=== PATIENT | female | born 1985 | race Caucasian/White ===

== ENCOUNTER 2018-01-13 19:20 | Emergency (ER) | payer BC, SELFPAY ==
[2018-01-13 19:24] VITALS: BP 100/58; PULSE 73; RESP 16; TEMP 36.4; O2SAT 98
[2018-01-13] MEDS: Normal Saline 1,000 ML 1000 ML IV (19:52)
[2018-01-13] MEDS: Ondansetron 4 MG/2 ML VIAL IVP (19:53)
[2018-01-13] MEDS: diphenhydrAMINE 50 MG/ML VIAL IVP (19:54)
[2018-01-13] MEDS: Dexamethasone 10 MG/ML VIAL IVP (19:59)
[2018-01-13] MEDS: Prochlorperazine 10 MG/2 ML VIAL IVP (20:00)
[2018-01-13 20:47] VITALS: BP 94/52; PULSE 57; RESP 16; TEMP 37.2; O2SAT 97
--- NOTE | 2018-01-13 20:57 | ED.GENADUL ---
Disposition Clinical Impression: Migraine headache Disposition: HOME Condition: Stable Instructions: Migraine Headache (ED) Additional Instructions: Return immediately if you have any severe worsening of your headache, change in your headache or headache pattern, fever associated with headache, or neurological deficits. Otherwise follow-up with your primary care provider if your normal migraine abortive medication is no longer sufficient or if you get more frequency of headaches and need reassessment. Referrals: RUI BLACK [Primary Care Provider] - (Return to the emergency department as needed for emergent reassessment or for any worsening symptoms otherwise follow-up with your primary care provider as needed for any potential medication changes or recheck of your migraines.) Medical Decision Making - Medical Decision Making Patient presenting to the emergency department chief complaint of migraine headache. Patient states no change in migraine pattern or symptoms. Patient took her normal abortive medication without relief. Physical exam is unremarkable for any severe neurological changes or findings except for marked photo and phonophobia and subjective nausea. Review of patient's past medical records show recurrent migraine headaches with similar presentation and resolution after receiving Compazine, Zofran, Benadryl, Decadron and IV fluids. These were all ordered and patient was agreeable to receiving these medications. Patient was reassessed after completion of fluids and received medication. She did state that her headache was now a 5 out of 10 but still had persistent nausea. Patient was then ordered Phenergan to see if this would help resolve her symptoms. After receiving Phenergan patient was reassessed and states headache approximately 3 out of 10 and that she felt significantly better and wanting to be discharged home. Given the patient is otherwise neurologically intact with no concerning symptoms and typical migraine pattern I feel that she is able to be safely discharged. Patient was encouraged to return for any new or worsening symptoms otherwise follow-up with her primary care provider for reassessment or medication changes if her normal abortive therapy is proving to be continued infected. After discussion of diagnosis and plan of care with patient patient agreed and stated no further needs, questions, or concerns at this time. History of Present Illness - General Chief complaint: Headache Stated complaint: MIGRAINE,VOMITING Time Seen by Provider: 01/13/18 19:22 Source: patient, RN notes reviewed Mode of arrival: ambulatory Limitations: no limitations - History of Present Illness Initial comments: Patient presenting to the emergency department with complaint of significant migraine headache. She states that this is her typical migraine headache without any change in pattern or severity but that her normal medications are not working. She states that she took Aleve and sumatriptan right after it started but had no improvement and is now having nausea vomiting photo and phonophobia. Patient denies any injury or trauma, fever, or neurological deficits. Onset/Timin -: hour(s) Location: head Severity scale (1-10): 7 Quality: aching, other (pressure) Consistency: constant Improves with: none Worsens with: none Associated Symptoms: denies other symptoms Treatments Prior to Arrival: other (Imitrex, Aleve) - Related Data Diazepam [Valium] 5 mg PO PRN PRN 10/05/12 Duloxetine HCl [Cymbalta] 60 mg PO HS 10/05/12 SUMAtriptan [Imitrex] 5 mg NS DIRECTED 10/05/12 Naproxen Sodium [Aleve] 440 mg PO PRN PRN 06/08/14 Ondansetron ODT [Zofran Odt] 4 mg PO QID PRN #10 tabef 04/12/17 Promethazine [Phenergan] 25 mg PO PRN 01/13/18 Allergies Allergy/AdvReac Type Severity Reaction Status Date / Time codeine [Codeine] AdvReac n/v Unverified 04/12/17 21:01 ketorolac AdvReac n/v Unverified 04/12/17 21:01 ketorolac tromethamine AdvReac Nausea Unverified 04/12/17 21:01 [From Toradol] meperidine HCl [From Demerol] AdvReac n/v Unverified 04/12/17 21:01 oxycodone [Oxycodone] AdvReac n/v Unverified 04/12/17 21:01 oxycodone HCl AdvReac n/v Unverified 04/12/17 21:01 [From OxyContin] Narcotics AdvReac Uncoded 04/12/17 21:01 Review of Systems Constitutional: denies: fever, malaise Eyes: as per HPI. denies: vision change ENT: as per HPI. denies: ear pain Respiratory: denies: cough Cardiovascular: denies: syncope Neurological: as per HPI, headache. denies: weakness, numbness, paresthesias, confusion, vertigo Past Medical History - Past Medical History Migraine headaches, fibromyalgia Surgical history: other (surgery and right ankle surgery) LMP comments: week(s) (3 weeks ago). denies: - Social History Smoking status: never smoker Alcohol use: occasionally Drug use: none General Exam - General Limitations: no limitations General appearance: alert, other (In obvious discomfort) - Head Head exam: Present: atraumatic, normocephalic, normal inspection - Eye Eye exam: Present: normal apperance, PERRL, EOMI, other (Obvious photophobia). Absent: scleral icterus, conjunctival injection, nystagmus Pupils: Present: normal accommodation, other - ENT ENT exam: Present: normal orophraynx, mucous membranes moist - Neck Neck exam: Present: normal inspection, full ROM. Absent: tenderness, meningismus - Respiratory Respiratory exam: Present: normal lung sounds bilaterally. Absent: respiratory distress, wheezes, rales, rhonchi, stridor, decreased breath sounds - Cardiovascular Cardiovascular Exam: Present: regular rate, normal rhythm, normal heart sounds. Absent: tachycardia, systolic murmur, diastolic murmur, rubs, gallop, clicks - Neurological Exam Neurological exam: Present: alert, oriented X3, CN II-XII intact, normal gait. Absent: altered, motor sensory deficit - Skin Skin exam: Present: warm, dry, normal color. Absent: rash, cyanosis, diaphoretic, pallor, mottled Course Vital Signs - 24 hr 01/13/18 01/13/18 19:24 20:47 Temperature 36.4 C L 37.2 C Pulse 73 57 L Respiratory 16 16 Rate Blood Pressure 100/58 94/52 Pulse Oximetry 98 97
[2018-01-13 21:33] VITALS: BP 100/58; PULSE 58; RESP 16; O2SAT 97
== END 2018-01-13 21:28 | disposition home or self-care (01) ==
PROVIDERS: Emergency Provider Student in an Organized Health Care Education/Training Program; PCP Family Medicine
DX: G43.909 Migraine, unspecified, not intractable, without status migrainosus (principal)
CPT/HCPCS: 96374; 96375; 99284; 99283; J0780; J1100; J1200; J2405

== ENCOUNTER 2019-03-09 10:26 | Outpatient (CLI) | payer OTHER, SELFPAY ==
--- NOTE | 2019-03-09 10:30 | DI.RAD_ITS ---
EXAM: XR ANKLE RT COMPLETE INDICATION: PAIN AND SWELLING. COMPARISON: No exams were available for comparison TECHNIQUE: 2D digital imaging was performed. FINDINGS: Three views were obtained. The ankle mortise is well maintained. No bony abnormality seen. IMPRESSION:
== END 2019-03-09 10:46 ==
PROVIDERS: PCP Family Medicine; Visit Provider Psychiatry & Neurology Neurology
DX: M25.571 Pain in right ankle and joints of right foot (principal); M79.89 Other specified soft tissue disorders
CPT/HCPCS: 73610

== ENCOUNTER 2019-03-24 02:16 | Outpatient (CLI) | payer OTHER, SELFPAY ==
--- NOTE | 2019-03-24 10:14 | DI.MRI_ITS ---
EXAM: MR LOWER JOINT RT WO CLINICAL HISTORY: PAIN, INSTABILITY M25.371 M95.8 DEFORMITIES OF MUSCULOSKELETAL SYSTEM. TECHNIQUE: Multiplanar multisequence MRI was performed. COMPARISON: XR ANKLE RT COMPLETE from 03/09/2019 FINDINGS: The marrow signal is normal. No talar dome defect is seen. No tendon tear is seen. There is a no rmal quantity of joint fluid. IMPRESSION: Negative MRI of the right ankle.
== END 2019-03-24 02:36 ==
PROVIDERS: PCP Family Medicine; Visit Provider Student in an Organized Health Care Education/Training Program
DX: M25.571 Pain in right ankle and joints of right foot (principal); M25.371 Other instability, right ankle; M95.8 Other specified acquired deformities of musculoskeletal system
CPT/HCPCS: 73721

== ENCOUNTER 2020-03-28 07:49 | Outpatient (REF) | payer OTHER, SELFPAY ==
[2020-03-31 00:05] LABS: Patient Race White; SARS-CoV-2 RNA Undetected (Undetected); SARS-CoV-2 Specimen Source Nasal
== END 2020-03-28 08:09 ==
LOC: LBO 07:49
PROVIDERS: PCP Family Medicine; Visit Provider Nurse Practitioner Family
DX: Z11.59 Encounter for screening for other viral diseases (principal)
CPT/HCPCS: U0003

== ENCOUNTER 2020-05-24 02:29 | Outpatient (CLI) | payer OTHER, SELFPAY ==
[2020-05-27 21:30] LABS: COVID-19 RT-PCR Result NEGATIVE (Negative)
== END 2020-05-24 02:49 ==
PROVIDERS: PCP Family Medicine; Visit Provider Nurse Practitioner Family
DX: Z11.59 Encounter for screening for other viral diseases (principal)
CPT/HCPCS: U0003

== ENCOUNTER 2020-10-05 15:04 | Outpatient (REF) | payer OTHER, SELFPAY | END 2020-10-05 15:05 | disposition home or self-care (01) | LOC: LBN 15:04 | PROVIDERS: PCP Nurse Practitioner Family; Visit Provider Nurse Practitioner Family | DX: J02.9 Acute pharyngitis, unspecified (principal) | CPT/HCPCS: 87070 ==

== ENCOUNTER 2020-10-25 08:48 | Outpatient (CLI) | payer OTHER, SELFPAY ==
[2020-10-25 13:02] LABS: Anion Gap 8.4 mmol/L (3-11); BUN 13 mg/dL (7-18); CO2 27.6 mmol/L (21.0-32.0); CREATININE 0.7 mg/dL (0.55-1.02); Calcium 9.3 mg/dL (8.5-10.1); Calculated LDL 97 mg/dL (<100); Chloride 105 mmol/L (98-107); Cholesterol 205 mg/dL (<200); Glucose 95 mg/dL (74-106); HDL Cholesterol 98 mg/dL (40-60); Potassium 4.5 mmol/L (3.5-5.1); Sodium 141 mmol/L (136-145); Triglyceride 51 mg/dL (<150)
== END 2020-10-25 08:49 | disposition home or self-care (01) ==
PROVIDERS: PCP Nurse Practitioner Family; Referring Provider Nurse Practitioner Family; Visit Provider Nurse Practitioner Family
DX: Z00.00 Encounter for general adult medical examination without abnormal findings (principal); Z13.228 Encounter for screening for other metabolic disorders; Z13.220 Encounter for screening for lipoid disorders
CPT/HCPCS: 36415; 80048; 80061

== ENCOUNTER 2020-11-07 14:57 | Outpatient (CLI) | payer OTHER, SELFPAY ==
--- NOTE | 2020-11-07 | DI.RAD_ITS ---
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 TECHNIQUE: 2D digital imaging was performed. COMPARISON: CR XR ANKLE RT COMPLETE from 03/09/2019 FINDINGS: BONES: No acute fracture is present. No bony destructive lesion is seen. There is a question of a we ll corticated osseous density at the tip of the lateral malleolus which may represent an old avulsed fracture fragment. JOINTS: The ankle mortise is normally aligned. The articular surfaces are well maintained. SOFT TISSUE: Normal. IMPRESSION: No acute abnormality. DATA REPOSITORY: RADIATION DOSE DELIVERED:
== END 2020-11-07 15:17 ==
PROVIDERS: PCP Nurse Practitioner Family; Visit Provider Orthopaedic Surgery Foot and Ankle Surgery
DX: M19.171 Post-traumatic osteoarthritis, right ankle and foot (principal); M25.571 Pain in right ankle and joints of right foot
CPT/HCPCS: 73610

== ENCOUNTER 2020-11-22 01:58 | Outpatient (CLI) | payer OTHER, SELFPAY ==
--- NOTE | 2020-11-22 06:45 | DI.MRI_ITS ---
Exam(s) MR LOWER JOINT RT WO EXAM: MR LOWER JOINT RT WO CLINICAL HISTORY: chronic right ankle instability, prior surgeries,M25.371 TECHNIQUE: Multiplanar multisequence MRI was performed without intravenous contrast. COMPARISON: MR MR LOWER JOINT RT WO from 03/24/2019 CR XR ANKLE RT COMPLETE from 11/07/2020 FINDINGS: BONES/JOINTS: No fracture or contusion pattern. No bone lesions identified. The talar dome is smooth. The ankle mortise is maintained. No joint effusion is present. LIGAMENTS: The tibiofibular and calcaneofibular ligaments are intact. The talofibular ligaments are i ntact. The deltoid ligament is intact. The syndesmosis is unremarkable. Sinus tarsi is normal. MUSCULOTENDINOUS STRUCTURES: Achilles tendon: Unremarkable. Plantar fascia: Unremarkable. Anterior Extensor tendons: Unremarkable. Posterior Tibialis: Unremarkable. Flexor Digitorum longus: Unremarkable. Flexor Hallucis longus: Unremarkable. Peroneus longus: Unremarkable. Peroneus brevis:Unremarkable. SOFT TISSUES: Unremarkable. OTHER FINDINGS: None. IMPRESSION: No acute abnormality. No evidence of a ligament or tendon tear. DATA REPOSITORY:
== END 2020-11-22 02:18 ==
PROVIDERS: PCP Nurse Practitioner Family; Visit Provider Nurse Practitioner Family
DX: M25.371 Other instability, right ankle; Z98.890 Other specified postprocedural states
CPT/HCPCS: 73721

== ENCOUNTER 2021-05-21 20:15 | Emergency (ER) | payer OTHER, SELFPAY ==
[2021-05-21 20:18] VITALS: BP 116/66; PULSE 91; RESP 18; TEMP 36.4; O2SAT 100
[2021-05-21] MEDS: diphenhydrAMINE 50 MG/ML VIAL 25 MG IVP (20:44)
[2021-05-21] MEDS: Prochlorperazine 10 MG/2 ML VIAL IVP (20:44)
[2021-05-21] MEDS: Normal Saline 1,000 ML 1000 ML IV (20:44)
[2021-05-21] MEDS: Dexamethasone 10 MG/ML VIAL IVP (21:22)
--- NOTE | 2021-05-21 21:54 | ED.GENADUL_ITS ---
Discharge Plan Disposition Patient Disposition: HOME Condition: Improving Discharge Details Clinical Impression: Migraine headache Primary Care Provider: Zayda Eubanks ED Provider: Shiela Clements Home Meds and New Rx's Prescriptions: Continued magnesium oxide 400 mg magnesium tablet 400 mg PO DAILY RF: 0 vitamin B complex Tablet 1 tab PO DAILY RF: 0 turmeric root extract 500 mg capsule 500 mg PO DAILY RF: 0 promethazine 25 mg tablet 25 mg PO Q8H PRN (Reason: nausea and vomiting) Qty: 60 RF: 1 sahyngchtc-awvbxukrwqyef-tfqs [Fioricet] 50-300-40 mg capsule 1 cap PO Q8H PRN (Reason: pain) Qty: 3 RF: 0 amoxicillin-pot clavulanate [Augmentin] 875-125 mg tablet 1 tab PO Q12H Qty: 14 RF: 0 sumatriptan succinate 100 mg tablet 100 mg PO ONCE RF: 0 celecoxib [Celebrex] 100 mg capsule 100 mg PO BID PRN (Reason: pain) Qty: 60 RF: 0 sumatriptan [Imitrex] 5 MG spray,non-aerosol 5 mg NS DIRECTED RF: 0 naproxen sodium [Aleve] 220 MG capsule 440 mg PO PRN PRNRF: 0 Discharge Instructions Instructions: General Headache (ED) Referrals: Zayda Eubanks NP [Primary Care Provider] - Discharge Data Discharge Date/Time-TO BE ENTERED AT DEPARTURE: 05/21/21 22:13 Medical Decision Making <Shiela Clements NP - Last Filed: 05/21/21 22:09> presents with typical migraine, not responding to home medications will given 1 liter NS with compazine 10 mg IV and benadryl 50 mg IVP and decadron 10 mg IVP with improvement in symptoms. feels she is able to take PO and requesting discharge to home. Medical Records Medical records reviewed: Yes I reviewed the patient's medical records. <Titi Sharif MD - Last Filed: 05/24/21 08:42> I did not evaluate this patient. Patient was seen, treated and disposition independently by nurse practitioner Tyree. HPI <Shiela Clements NP - Last Filed: 05/21/21 22:09> General Mode of arrival: ambulatory . Date/Time Provider Initiated Documentation: 05/21/21 20:23 . Limitations to Documentation: no limitations . Information obtained by: patient . HPI Narrative: arrives with c/o migraine, same as chronic typical migraine. tried imitrex yesterday and today. no fevers, no new symptoms, no thunderclap or other warning. Related Data Home Medications Medication Instructions Recorded Confirmed sumatriptan [Imitrex] 5 mg NS DIRECTED 10/05/12 04/02/21 naproxen sodium [Aleve] 440 mg PO PRN PRN 06/08/14 04/02/21 sumatriptan succinate 100 mg tablet 100 mg PO ONCE 09/18/20 04/02/21 magnesium oxide 400 mg PO DAILY 10/24/20 04/02/21 turmeric root extract 500 mg 500 mg PO DAILY 10/24/20 04/02/21 capsule vitamin B complex 1 tab PO DAILY 10/24/20 04/02/21 promethazine 25 mg tablet 25 mg PO Q8H PRN #60 tab 10/25/20 04/02/21 celecoxib 100 mg capsule 100 mg PO BID PRN #60 cap 12/05/20 04/02/21 amoxicillin 875 mg-potassium 1 tab PO Q12H #14 tab 04/02/21 04/02/21 clavulanate 125 mg tablet sgikshpkzn-bxhklqtlzcrgc-arjlggpb 1 cap PO Q8H PRN #3 cap 04/02/21 04/02/21 50 mg-300 mg-40 mg capsule Previous Rx's Medication Instructions Recorded promethazine 25 mg tablet 25 mg PO Q8H PRN #60 tab 10/25/20 celecoxib 100 mg capsule 100 mg PO BID PRN #60 cap 12/05/20 amoxicillin 875 mg-potassium 1 tab PO Q12H #14 tab 04/02/21 clavulanate 125 mg tablet klkvkyscaz-wdtqooqkaitwg-eppsswox 1 cap PO Q8H PRN #3 cap 04/02/21 50 mg-300 mg-40 mg capsule Allergies Allergy/AdvReac Type Severity Reaction Status Date / Time codeine [Codeine] AdvReac n/v Verified 04/02/21 13:30 ketorolac AdvReac n/v Verified 04/02/21 13:30 ketorolac tromethamine AdvReac Nausea Verified 04/02/21 13:30 [From Toradol] meperidine HCl [From Demerol] AdvReac n/v Verified 04/02/21 13:30 oxycodone [Oxycodone] AdvReac n/v Verified 04/02/21 13:30 oxycodone HCl AdvReac n/v Verified 04/02/21 13:30 [From OxyContin] Narcotics AdvReac Uncoded 04/02/21 13:30 General Stated Complaint: Headache MIKHAIL: 4 Review of Systems <Shiela Clements NP - Last Filed: 05/21/21 22:09> All systems reviewed & are unremarkable except as noted in HPI and below Constitutional Constitutional: Denies fever(s) Eyes Eyes: Denies loss of vision ENT Ears, Nose, Mouth, and Throat: Denies vertigo, Denies dizziness and Denies neck pain Cardiovascular Cardiovascular: Denies lightheadedness Gastrointestinal Gastrointestinal: Denies abdominal pain, Denies constipation, Denies diarrhea, Reports nausea and Reports vomiting Musculoskeletal Musculoskeletal: Denies neck pain Neurologic Neurologic: Denies vertigo, Denies dizziness, Denies loss of vision and Reports other (headache) PFSH <Shiela Clements NP - Last Filed: 05/21/21 22:09> All Active Problems (Updated 05/21/21 @ 22:09 by Shiela Clements NP) Right ankle instability (Chronic) Fibromyalgia (Chronic) Migraine headache (Chronic) Medical History Fibromyalgia Migraine headache Right ankle instability Surgical History History of ankle surgery Right avulsion repair S/P arthroscopy of left shoulder (~2007) x 2 at [facility] and [facility] S/P right rotator cuff repair (~2014) Dr. Butterfield Family History Mother Stroke 40s Father No problems noted. Brother No problems noted. Maternal Grandfather Heart disease Alcohol abuse Maternal Grandmother , at 78 No problems noted. Paternal Grandfather No problems noted. Paternal Grandmother No problems noted. Social History Smoking/Tobacco Use Status: Never Smoking risk assessment performed?: Yes Alcohol Intake: current Alcohol Intake frequency: a few times a week Alcohol type: other Drug use: Never Substance use type: does not use Housing: apartment Communication Needs: None Pets and animals: Yes Pets and animals: dog(s) Sexually active: No Do you think of yourself as: lesbian/vargas/homosexual Current gender identity: female What is your relationship status?: never How often do you talk on the phone with friends or family?: once per week Do you belong to any clubs or organized social groups?: no Panel score (0-1 are the most socially isolated patients): 0 What type of physical activity do you participate in: walking and bicycling Frequency: 1-2 times per week Guerda/Synagogue: No preference Special guerda needs: No Seatbelt use: always Drive intox or ride w/intox local company hazmat driver: No Do you feel safe in your relationship?: Yes Exam <Shiela Clements NP - Last Filed: 05/21/21 22:09> Const General: cooperative and acute distress moderate Nutritional Appearance: average body habitus Orientation: alert, awake and oriented x3 HENMT Head: normal to inspection, normocephalic and atraumatic Eyes General: appearance normal, both eyes and all related structures Cardio Rate: regular rate Rhythm: regular rhythm Skin General skin exam: no rashes or lesions noted Neuro General: patient alert, patient awake, patient oriented x3 and no focal motor deficits Extrem General: normal to inspection, full ROM and no pedal edema Course <Shiela Clements NP - Last Filed: 05/21/21 22:09> Vital Signs Vital signs: Vital Signs Temperature 36.4 C L 05/21/21 20:18 Pulse 91 H 05/21/21 20:18 Respiratory Rate 18 05/21/21 20:18 Blood Pressure 116/66 05/21/21 20:18 Pulse Oximetry 100 05/21/21 20:18 Temperature 36.4 C L 05/21/21 20:18 Temperature Source Tympanic 05/21/21 20:18 Pulse 91 H 05/21/21 20:18 Respiratory Rate 18 05/21/21 20:18 Respiratory Effort 05/21/21 20:21 Blood Pressure 116/66 05/21/21 20:18 Blood Pressure Position Supine 05/21/21 20:18 Pulse Oximetry 100 05/21/21 20:18 Oxygen Delivery Method Room Air 05/21/21 20:18 Oxygen Flow Rate 0 05/21/21 20:18 Pain Level 9 05/21/21 20:18
== END 2021-05-21 22:13 | disposition home or self-care (01) ==
PROVIDERS: Emergency Provider Nurse Practitioner Acute Care; PCP Nurse Practitioner Family
DX: G43.909 Migraine, unspecified, not intractable, without status migrainosus (principal)
CPT/HCPCS: 96361; 96374; 96375; 99284; 99283; J0780; J1100; J1200

== ENCOUNTER → 2021-11-25 00:28 | Outpatient (CLI) | payer OTHER, SELFPAY ==
--- NOTE | 2021-11-25 | DI.MRI_ITS ---
Exam(s) MR PELVIS WO/W EXAM: MR PELVIS WO/W CLINICAL HISTORY: PELVIC MASS, R19.00, PELVIC US ABNORMALITY TECHNIQUE: Multiplanar multisequence MRI of Pelvis was performed. CONTRAST MATERIAL: IV Contrast: 12 mL of Dotarem contrast administered. COMPARISON: US US PELVIS TRANSVAGINAL from 11/21/2021 FINDINGS: Uterus: Anteverted 8.5 cm in length, 6 cm 8 AP by 6 x 7.5 cm transverse. Endometrium homogeneous. 7 millimeter submucosal fibroid. Multiple small low signal lesions consistent with small myometrial f ibroids. Right anterior circumscribed mainly low signal lesion measuring 8.8 by 5.7 by 5.4 cm. Sign al characteristics and enhancement consistent with a large serosal Fibroid. additional large serosal fibroid measuring 12 x 12 x 7.5 cm. Similar appearing posterior pedunculated fibroid measuring 8.3 by 6 by 5.9 cm. Cervix: Unremarkable. Vagina: Tampon in place. Ovaries: Normal in size with normal small bilateral follicles. Bowel: Unremarkable. Peritoneal cavity: Small amount of free fluid. Bladder: Unremarkable. Bones: There is no fracture or contusion pattern. No significant joint effusion. No bone marrow cindi ma is seen. The SI joints and symphysis pubis are well maintained. L3-4 through L5-S1 discs unremarka ble. IMPRESSION: Findings consistent with 3 large pedunculated fibroids. Other small myometrial fibroids as well as s ubmucosal fibroid is seen. Given the large size of the fibroids, malignancy is not entirely excluded . Surgical consultation is recommended. The ovaries appear normal. DATA REPOSITORY:
[2021-11-25] MEDS: Normal Saline Flush 10 ML SYR IVP (08:37)
== END ==
PROVIDERS: PCP Nurse Practitioner Family; Visit Provider Physician Assistant Medical
DX: R19.09 Other intra-abdominal and pelvic swelling, mass and lump (principal); D25.0 Submucous leiomyoma of uterus; D25.2 Subserosal leiomyoma of uterus
CPT/HCPCS: 72197

== ENCOUNTER 2021-12-02 14:04 | Outpatient (REF) | payer OTHER, SELFPAY ==
--- NOTE | 2021-12-02 13:35 | PAPFT_PTH ---
PATIENT: Lissa Waller LOC: [facility] U#:[id number] AGE/SX: 36/F ROOM: RE12/02/[address]: Tiffany Sheridan DO : 1985 BED: DIS: 12/02/2021 SPEC #: [id number] RECD: 12/02/21 18:28 STATUS: KAM REQ #: [id number] LEWIS: 12/02/21 13:[address]: Tiffany Sheridan DEPT: [facility] Cytology RECD BY: Mel Farah ENTERED: 12/02/21 18:29 SP TYPE: PAPFT OTHR DR: Zayda Eubanks, FABRICATION MACHINE OPERATOR Tissues: 1 - CX/ENDOCX FOR PAP SMEARS Procedures: PAP THIN PREP/UVM Screening HPV DNA PROBE Comments: [id number]
== END 2021-12-02 14:05 | disposition home or self-care (01) ==
LOC: LBN 14:04
PROVIDERS: PCP Nurse Practitioner Family; Visit Provider Obstetrics & Gynecology
DX: Z11.51 Encounter for screening for human papillomavirus (HPV) (principal)
CPT/HCPCS: 88142; 87624

== ENCOUNTER 2022-02-02 04:04 | Outpatient (CLI) | payer OTHER, SELFPAY ==
[2022-02-02 12:11] LABS: Abs Immature Grans 0.01 10^3/uL (0.0-0.06); Absolute Basophil Count 0.05 10^3/uL (0.0-0.2); Absolute Eosinophil Count 0.11 10^3/uL (0.0-0.7); Absolute Lymphocyte Count 1.57 10^3/uL (1.2-3.4); Absolute Monocyte Count 0.56 10^3/uL (0.1-0.8); Absolute Neutrophil Count 2.32 10^3/uL (1.2-6.7); Basophils % 1.1; Eosinophils % 2.4; HCT 39.6 % (36.0-46.0); HGB 13.4 g/dL (11.2-15.7); Immature Grans % 0.2; MCH 30.1 pg (27.0-33.0); MCHC 33.8 % (32.0-36.0); MCV 89 fL (80-95); Monocytes % 12.1; Neutrophils % 50.2; Platelet Count 354 10^3/uL (130-400); RBC 4.45 10^6/uL (3.93-5.22); RDW 12.2 % (11.7-14.6); RDW-SD 39.7 fL; WBC 4.62 10^3/uL (4.4-10.8)
[2022-02-04 11:12] LABS: COVID-19 RT-PCR UVMMC Result Negative (Negative)
== END 2022-02-02 04:05 | disposition home or self-care (01) ==
LOC: LBO 04:04
PROVIDERS: PCP Nurse Practitioner Family; Visit Provider Obstetrics & Gynecology
DX: Z01.818 Encounter for other preprocedural examination (principal); Z20.822 Contact with and (suspected) exposure to COVID-19
CPT/HCPCS: 36415; 86850; 86900; 86901; 87635; U0003; 85025

== ENCOUNTER 2022-02-04 07:22 | Inpatient (IN) | payer OTHER, SELFPAY ==
[2022-02-04] VITALS (23 sets, daily range): BP systolic 82–107; BP diastolic 41–66; PULSE 47–91; RESP 12–23; TEMP 35.5–37.6; O2SAT 97–100; BMI 22.0
[2022-02-04 07:37] LABS: Source Nasal/Nares
[2022-02-04] MEDS: Lactated Ringers 1,000 ML 125 ML IV ×3 (08:13→21:12)
[2022-02-04 08:41] LABS: COVID-19 PCR Negative (Negative)
--- NOTE | 2022-02-04 09:21 | ANES.PREOP_ITS ---
General Info Date of Service Date Performed: 02/04/22 Height: 5 ft 4 in Weight: 58.2 kg Body Mass Index (BMI): 22.0 Surgical Procedure: Operation Date: 02/04/22 09:25 Proposed Procedure Side Surgeon p Total Hysterectomy Abdominal,Bilateral Salpingectomy, Cystoscopy Tiffany Sheridan DO Meds Allergies and Home Medications Allergies Allergy/AdvReac Type Severity Reaction Status Date / Time codeine [Codeine] AdvReac n/v Verified 02/04/22 07:53 ketorolac AdvReac n/v Verified 02/04/22 07:53 ketorolac tromethamine AdvReac Nausea Verified 02/04/22 07:53 [From Toradol] meperidine HCl [From Demerol] AdvReac n/v Verified 02/04/22 07:53 oxycodone [Oxycodone] AdvReac n/v Verified 02/04/22 07:53 oxycodone HCl AdvReac n/v Verified 02/04/22 07:53 [From OxyContin] Narcotics AdvReac Uncoded 02/04/22 07:53 Home Medication Medication Instructions Recorded naproxen sodium 220 mg capsule 440 mg PO PRN PRN 06/08/14 (Aleve) magnesium oxide 400 mg PO DAILY 10/24/20 turmeric root extract 500 mg 500 mg PO DAILY 10/24/20 capsule vitamin B complex 1 tab PO DAILY 10/24/20 promethazine 25 mg tablet 25 mg PO Q8H PRN nausea and 10/25/20 vomiting #60 tabs celecoxib 100 mg capsule (Celebrex) 100 mg PO BID PRN pain #60 caps 08/07/21 bupropion HCl 150 mg 24 hr tablet, 150 mg PO DAILY #90 tabs 11/25/21 extended release (Wellbutrin XL) lorazepam 2 mg tablet 2 mg PO DAILY PRN 02/02/22 ondansetron 4 mg disintegrating 4 mg PO DIRECTED 02/03/22 tablet zolmitriptan 5 mg nasal spray 1 spray intranasal DIRECTED 02/03/22 Current Visit Medications: Current Medications Generic Name Dose Route Start Last Admin Trade Name Freq PRN Reason Stop Dose Admin Ringer's Solution 1,000 mls @ 125 mls/hr 02/04/22 06:00 02/04/22 08:13 IV 03/05/22 23:59 125 mls/hr INFUSION CHRISTIAN Administration Cefazolin Sodium/Dextrose 2 gm in 50 mls @ 100 mls/hr 02/04/22 06:00 Ancef Duplex IVPB 02/04/22 16:00 PREOP CHRISTIAN IV Miscellaneous Supplies 1 each 02/04/22 06:00 Iv Access IV 03/05/22 23:59 DIRECTED CHRISTIAN Sodium Chloride 0 ml 02/04/22 06:00 Normal Saline Flush 10 Ml Syr IV 03/05/22 23:59 PRN PRN Sodium Chloride 0 ml 02/04/22 06:00 Normal Saline 10 Ml Vial IJ 03/05/22 23:59 DIRECTED PRN Sterile Water 0 ml 02/04/22 06:00 Water,Injection,Sterile 10 Ml Vial IJ 03/05/22 23:59 DIRECTED PRN PFSH Active Problems Active Problems: Problem Status Onset Code Migraine headache G43.909 Fibromyalgia M79.7 Right ankle instability M25.371 Uterine fibroid D25.9 Depression F32.A Uterine fibroid D25.9 Medical History Medical History PONV (postoperative nausea and vomiting) Medical History Comments:: Pt. requesting NO NSAIDS in the first 12-14 hours 02/04/22 Pt reports she can tolerate Vicodine and Dilaudid if given with Promethl azine Surgical History Surgical History History of ankle surgery Right avulsion repair S/P arthroscopy of left shoulder (~2007) x 2 at [facility] S/P right rotator cuff repair (~2014) Dr. Butterfield Tobacco Smoking/Tobacco Use Status: Never Alcohol Alcohol Intake: current Alcohol intake frequency: a few times a week Alcohol type: other Substance Use Substance use: Never Substance use type: does not use Prental History History 0 Para Hx # Term Pregnancies Multiple births Hx # Pregnancies Ectopic pregnancies AB induced Hx Number of Living Children AB spontaneous Vital Signs and Lab Results Vital Signs Most Recent Vital Signs in EMR: Most Recent Vital Signs Temp Pulse Resp BP Pulse Ox 36.7 C 91 H 16 98/63 L 99 02/04/22 07:57 02/04/22 07:57 02/04/22 07:57 02/04/22 07:57 02/04/22 07:57 Point of Care Results Point of Care Results: POC- Test(urine) Negative 02/04/22 08:03 Lab Results Blood Type / Crossmatch: Patient ABO/Rh B Positive 02/02/22 Antibody Screen NEGATIVE 02/02/22 Complete Blood Count: White Blood Count 4.62 10^3/uL (4.4-10.8) 02/02/22 12:06 Red Blood Count 4.45 10^6/uL (3.93-5.22) 02/02/22 12:06 Hemoglobin 13.4 g/dL (11.2-15.7) 02/02/22 12:06 Hematocrit 39.6 % (36.0-46.0) 02/02/22 12:06 Platelet Count 354 10^3/uL (130-400) 02/02/22 12:06 Complete Metabolic Panel: No Data to Display Liver Function Panel: No Data to Display Coagulation Panel: No Data to Display Cardiac Panel: No Data to Display Arterial Blood Gas: No Data to Display Venous Blood Gas: No Data to Display Pancreas Panel: No Data to Display Thyroid Panel: No Data to Display Infectious Disease: Coronavirus (COVID-19)(PCR) Negative (Negative) 02/04/22 07:32 Coronavirus 2019 Source Nasal/Nares 02/04/22 07:32 Blood Cultures: No Data to Display Toxicology Panel: No Data to Display Panel: No Data to Display Anesthesia Assessment and Plan Anesthesia History Personal History: No History of Anesthesia Complications and PONV Family History: No Family History of Anesthesia Complications Exercise Tolerance Exercise Tolerance: Metabolic Equivalents>4 Pertinent Negatives Pertinent Negatives: No Symptoms of GERD, No Major Cardiovascular Symptoms or Complaints and No Major Pulmonary Symptoms or Complaints Cardiac & Pulmonary Exam Cardiac Exam: Normal S1/S2 Heart Sounds Pulmonary Exam: Clear Bilateral Breath Sounds Implantable Cardiac Device Does patient have a Pacemaker or an ICD?: No Airway Exam Known Difficult Airway: No Mallampati Class: 1 Mouth Opening: Normal (> 3cm) Thyromental Distance: Greater than 3 cm Neck Range of Motion: Full ROM Neck Circumference: Normal Teeth Condition: Normal Dentition ASA Classification ASA Score: ASA 2 Emergency Case?: No NPO Status NPO Status: NPO Clears >2 hours, Solids >8 hours Status Status: Negative HCG Anesthesia Plan Resuscitation Status: Full Code Anesthesia Technique: General Anesthesia Airway Planned: Endotracheal Tube Monitors Used: Standard Monitors Preoperative Comments:: Intrathecal Narcotics
[2022-02-04] MEDS: ceFAZolin 2 GM/50 ML BAG IVPB (10:45)
[2022-02-04] MEDS: Bupivacaine 0.25% Pres-Free 30 ML VIAL (11:07)
--- NOTE | 2022-02-04 11:09 | UTER_PTH ---
PATIENT: Lissa Waller LOC: U#:[id number] AGE/SX: 36/F ROOM: RE02/04/[address]: Tiffany Sheridan DO : 1985 BED: A DIS: 02/06/2022 SPEC #: [id number] RECD: 02/04/22 13:06 STATUS: KAM REQ #: [id number] LEWIS: 02/04/22 11:[address]: Tiffany Sheridan DEPT: Surgical Specimen RECD BY: Mel Farah ENTERED: 02/04/22 13:07 SP TYPE: UTER OTHR DR: RICHARD Deleon Tissues: 1 - UTERUS W OR W/O OVARIES(NOT TUMOR/PROLAPSE) Procedures: GROSS AND MICRO LEVEL 5 Comments: [id number]
[2022-02-04] MEDS: Lidocaine 2% Jelly 6 ML SYR (12:17)
--- NOTE | 2022-02-04 12:35 | ROE_ITS ---
Date of service: 02/04/22 Time of Service: 12:35 Operative Note Operative Note DATE OF PROCEDURE: 02/04/22 PRE-OP DIAGNOSIS: Markedly enlarged fibroid uterus with multiple fibroids, largest being 12 cm POST-OP DIAGNOSIS: same PROCEDURE: Total abdominal hysterectomy with bilateral salpingectomy, and cystoscopy SURGEON: Tiffany Sheridan ASSISTING SURGEON: Yvette Lopez ANESTHESIA TYPE: Local By Surgeon and General LMA/ETT Refer to Anesthesia Record ESTIMATED BLOOD LOSS: 200 PATHOLOGY: other (Uterus, cervix, bilateral fallopian tubes) COMPLICATIONS: None Patient was transported to: PACU Patient's condition: stable Indications: Markedly enlarged bulky fibroid uterus, symptomatic Findings: Uterus approximately 5 cm in greatest dimension with 4 large uterine fibroids the largest measuring approximately 12 cm. These are pedunculated from the uterine fundus, mid body, and lower segment. Normal-appearing ovaries. Normal- appearing fallopian tubes. Stage I endometriosis at the right round ligament. Normal bladder cystoscopy with no evidence of trauma and patent ureteric orifice ease bilaterally Procedure Description: After full informed consent was obtained, patient taken the operating suite with IV running where she is placed in the seated position and intrathecal performed for postoperative pain management. She was then placed in dorsal supine position and endotracheal intubation performed for the administration of general anesthesia with ease. She was then prepped and draped in usual sterile fashion including vaginal preparation, Candelaria catheter insertion and placed in dorsal supine position. Exam under anesthesia revealed a uterus that was approximately 4 cm above the umbilicus, and mobile. At this point, after infiltration with quarter percent Marcaine and Exparel combination Pfannenstiel skin incision was made. This carried down to the underlying fascia which was nicked in the midline and the fascial incision extended laterally. The rectus muscles were identified split in the midline and the peritoneum identified tented up and entered sharply. The peritoneal incision was then extended superiorly and inferiorly and retractors placed. The uterus was noted to be markedly enlarged, globular, with multiple fibroids. These multiple fibroids were elevated through the incision along with the uterus. On further inspection ovaries appeared normal as did the fallopian tubes. The largest of the fibroids was proximately 12 cm with 2 measuring approximately 6 cm and a fourth approximately 3 cm. The uterus itself was relatively small relative to the uterine fibroids. At this point attention was turned to the right fallopian tube which was cautery transected and removed left fallopian tube was also cautery transected and removed. The right round ligament was identified suture-ligated and transected allowing access to the broad ligament. Similar procedure was carried on the left round ligament allowing access to the broad ligament. The bladder flap was then created anteriorly and bladder was pushed low below the cervix. The right uterine pedicle was elevated, clamped, transected, and ligated. Similar procedure was carried out on the left uterine pedicle. In a systematic fashion down to level of stroke at vaginal interface all pedicles were clamped transected and suture-ligated. The cervical vaginal interface was clamped, and transected. The vaginal cuff was then closed using 0 Vicryl suture in a running locked fashion. On inspection the vaginal cuff was noted to be hemostatic. All pedicles were also hemostatic. Deep within the pelvis was visualization of the ureters bilaterally. Despite normal visualization, decision was made also to perform a cystoscopy to ensure integrity of the bladder and patency of the ureters. This is due to significant enlargement of the fibroid uterus and potential for compression and anatomic distortion. Patient was given 1 dose of indigocarmine to assist in visualization of the ureteric orifice ease. While awaiting for indigocarmine to circulate, the abdomen was irrigated with copious amounts of normal saline all retractors were removed and pedicles and again inspected and found to be hemostatic. There was an area at the right rectus muscle that had some bleeding which was oversewn using a 3-0 Vicryl suture and found to be hemostatic. The fascial incision was then closed using 0 Vicryl suture in a running fashion. Subcutaneous Tissue was irrigated with copious amounts of normal saline. Subcu space was reapproximated with 3-0 Vicryl and the skin edge reapproximated with 4-0 undyed Monocryl. Steri-Strips and sterile dressing were placed. At this point cystoscopy was performed after reprepping of the vaginal vault and redraping for cystoscopy. With instillation of normal saline the bladder was inspected and found to be completely atraumatic. The right and left ureteric orifice ease were patent and jets of blue-tinged urine were noted bilaterally. At this point procedure was terminated. Candelaria catheter was reinserted for continuous bladder drainage. Patient was returned to the dorsal supine position and awoke from anesthesia with ease. She was taken recovery room in stable condition with a Candelaria catheter draining clear blue-tinged urine. : Findings globular uterus with multiple uterine fibroids, largest being 12 cm. Normal-appearing tubes and ovaries. Stage I endometriosis with endometriotic implant at the right round ligament, completely resected with surgical specimen. EBL: 200 mL Fluids: Crystalloid per anesthesia Pathology: Uterus, tubes, cervix. Complications: None apparent
--- NOTE | 2022-02-04 13:12 | W.ANESPOSTOP ---
Postoperative Evaluation Date, Time and Location Date Performed: 02/04/22 Time Performed: 13:12 Patient Location: Day Surgery Unit Vital Signs Most Recent Imported Vital Signs: Most Recent Vital Signs Temp Pulse Resp BP Pulse Ox 36.4 C L 54 L 16 91/61 L 100 02/04/22 13:05 02/04/22 13:10 02/04/22 13:10 02/04/22 13:10 02/04/22 13:10 Pain Score Most Recent Pain Score: Most Recent Pain Score Pain Level 0 02/04/22 13:05 Assessment Mental Status: Awake (Alert & Oriented to Patient Baseline) Airway and Respiratory Function: Patent airway with normal (patient baseline) respiratory exam Cardiovascular Function: Hemodynamically Stable Hydration Status: Adequately Hydrated Nausea & Vomiting: No Nausea or Vomiting Pain: Pain is tolerable per patient Peripheral Nerve Block: Regional nerve block not resolved at time of post operative discharge
[2022-02-04] MEDS: ePHEDrine 25 MG/5 ML Syringe IVP ×2 (13:38→13:47)
[2022-02-04] MEDS: Acetaminophen 500 MG TAB 1000 MG PO ×2 (14:15→20:53)
--- NOTE | 2022-02-04 14:25 | NUR.NOTE ---
Nursing Note: Pt A&Ox3. Slightly groggy. Ice pack applied to surgical site. VSS, slightly hypotensive. see worklist. SCD's applied. Candelaria patent, urine blue. Pt oriented to room and call bed system.
[2022-02-04] MEDS: Docusate Sodium 100 MG CAP PO (20:53)
[2022-02-05] MEDS: Acetaminophen 500 MG TAB 1000 MG PO ×3 (03:26→20:54)
[2022-02-05 03:31] VITALS: BP 89/55; PULSE 80; RESP 16; TEMP 36.6; O2SAT 97
[2022-02-05] MEDS: Normal Saline Flush 10 ML SYR IV ×3 (06:07→15:53)
[2022-02-05] MEDS: HYDROmorphone 2 MG TAB PO ×4 (06:07→23:32)
[2022-02-05] MEDS: Ondansetron 4 MG/2 ML VIAL IVP ×4 (06:08→23:32)
[2022-02-05 06:27] VITALS: BP 90/54
--- NOTE | 2022-02-05 08:23 | W.PM.PROGNOT ---
Date of Service Date of service: 02/05/22 Time of Service: 08:23 Assessment and Plan Assessment and plan (1) Status post abdominal hysterectomy: Status: Acute Assessment and plan: Postoperative day #1 status post ALEISHA with salpingectomy. Overall she is doing well. She had declined nonsteroidal pain medication until 12 to 24 hours postoperative. We will add her ibuprofen and Toradol today. Will encourage ambulation. Candelaria catheter is out. She is tolerating regular diet without difficulty. She is passing flatus. My anticipation would be for discharge home either later today or tomorrow once her pain is under better control. All of her questions were answered this morning. Subjective Subjective Patient reports: tolerating liquids well, tolerating a regular diet and flatus; denies nausea, vomiting, shortness of breath or fever Exam Narrative Exam Narrative: Patient seen and examined this morning. Overall doing well. She is somewhat hesitant to be up and ambulatory as she does have significant amount of discomfort. All of her questions were answered today. Vital signs were reviewed are normal. Const General: cooperative, healthy appearing, comfortable and no acute distress Eyes General: appearance normal, both eyes and all related structures Resp Effort & Inspection: normal respiratory effort and no cough Cardio Rate: regular rate Rhythm: regular rhythm GI Inspection: normal to inspection and incision (Dressed) Palpation: soft, not firm, no guarding and not rigid Skin General skin exam: no rashes or lesions noted Extrem General: no clubbing, cyanosis or edema Objective Last Vital Signs Temp 97.9 F 02/05/22 03:31 Pulse 80 02/05/22 03:31 Resp 16 02/05/22 03:31 BP 90/54 L 02/05/22 06:27 Pulse Ox 97 02/05/22 03:31 Laboratory Results - last 24 hr 02/04/22 07:32 SARS-CoV-2 (PCR) Negative
[2022-02-05 08:27] VITALS: BP 104/60; PULSE 71; RESP 16; TEMP 36.6; O2SAT 98
[2022-02-05] MEDS: Ibuprofen 600 MG TAB PO ×3 (08:49→19:13)
[2022-02-05] MEDS: buPROPion-XL 150 MG TABCR PO (08:49)
[2022-02-05 08:50] LABS: Abs Immature Grans 0.02 10^3/uL (0.0-0.06); Absolute Basophil Count 0.02 10^3/uL (0.0-0.2); Absolute Eosinophil Count 0.14 10^3/uL (0.0-0.7); Absolute Lymphocyte Count 0.95 10^3/uL (1.2-3.4); Absolute Monocyte Count 0.84 10^3/uL (0.1-0.8); Absolute Neutrophil Count 5.51 10^3/uL (1.2-6.7); Basophils % 0.3; Eosinophils % 1.9; HCT 34.4 % (36.0-46.0); HGB 11.3 g/dL (11.2-15.7); Immature Grans % 0.3; Lymphocytes % 12.7; MCH 29.8 pg (27.0-33.0); MCHC 32.8 % (32.0-36.0); MCV 91 fL (80-95); Monocytes % 11.2; Neutrophils % 73.6; Platelet Count 302 10^3/uL (130-400); RBC 3.79 10^6/uL (3.93-5.22); RDW 12.5 % (11.7-14.6); RDW-SD 41.4 fL; WBC 7.48 10^3/uL (4.4-10.8)
[2022-02-05] MEDS: Magnesium Oxide 400 MG TAB PO (08:50)
[2022-02-05] MEDS: Docusate Sodium 100 MG CAP PO ×2 (08:50→19:13)
--- NOTE | 2022-02-05 09:06 | PDOC.CMIN ---
- If Service Date Differs Date of service: 02/05/22 Time of Service: 09:06 Care Management Initial Assess REASON FOR HOSPITALIZATION:: ALEISHA PAST MEDICAL HISTORY/PAST SURGICAL HISTORY:: All Active Problems . Uterine fibroid (Acute). 11/2021- large uterine fibroids confirmed by ultrasound and MRI,. Depression (Chronic). Uterine fibroid (Acute). Right ankle instability (Chronic). Fibromyalgia (Chronic). Migraine headache (Chronic). Surgical History . History of ankle surgery. Right avulsion repair. S/P arthroscopy of left shoulder (~2007). x 2 at [facility] and [facility]. S/P right rotator cuff repair (~2014) PREVIOUS FUNCTIONAL STATUS/SOCIAL/FAMILY SUPPORTS:: Lissa lives alone in an apartment in [place] and works at [employer]. Her mother lives in the [facility] and she has a brother in [place]. Lissa is independent at baseline and has several good friends in the area who provide support. CURRENT FUNCTIONAL STATUS:: Lissa was reclining in bed when CM met with her. She was agreeable to conversation but admitted to being in a lot of pain. She has been trying to limit her alalgesia to ibuprofen but has had 2 doses of Hydromorphone today which were effective. Lissa denied the need for any services at home. She shared that she has some friends who are going to stay with her for a few days and her downstairs neighbors are very helpful and supportive. ADVANCE DIRECTIVES:: none on file Has patient been provided with info about the portal/API?: Yes Did the patient sign up for the portal?: Yes (previously) CODE STATUS:: Full Code INSURANCE COVERAGE / FINANCIAL ISSUES:: [employer] CURRENT HOME/COMMUNITY SERVICES/EQUIPMENT:: none PRIMARY CARE PHYSICIAN:: Zayda Eubanks POTENTIAL DISCHARGE NEEDS:: follow up with surgeon and plan of care PATIENT/FAMILY EDUCATION NEEDS:: Review of discharge instructions, limitations, follow up plan, activity discuss Ask Me Three ANTICIPATED BARRIERS TO DISCHARGE:: pain control TRANSPORTATION:: via private vehicle with friend PLAN:: Lissa will be discharged home with no new services. She will follow up with her surgeon and plan of care and transport with a friend.
[2022-02-05 15:31] VITALS: BP 91/62; PULSE 70; RESP 17; TEMP 37; O2SAT 99
--- NOTE | 2022-02-05 16:13 | CHAPLAIN ---
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 She talked about the challenge of dealing with her pain following surgery. She is likely going to spend the night here and then will have someone staying with her when she goes home until early next week. I'll continue to visit.
[2022-02-05 22:50] VITALS: BP 100/62; PULSE 77; RESP 17; TEMP 36.2; O2SAT 100
[2022-02-06] MEDS: Ibuprofen 600 MG TAB PO ×2 (04:56→09:32)
[2022-02-06] MEDS: Acetaminophen 500 MG TAB 1000 MG PO (04:56)
[2022-02-06 07:05] VITALS: BP 94/60; PULSE 78; RESP 17; TEMP 36.5; O2SAT 97
--- NOTE | 2022-02-06 07:14 | W.PM.PROGNOT ---
Date of Service Date of service: 02/06/22 Time of Service: 07:15 Assessment and Plan Assessment and plan (1) Status post abdominal hysterectomy: Status: Acute Assessment and plan: Postoperative day #2 status post total abdominal hysterectomy with bilateral salpingectomy due to markedly enlarged fibroids. Overall, She is doing well. She is ambulatory, tolerating a regular diet with stable vital signs. Her pain is reasonably well controlled with the transition to oral pain medications. She will be discharged home today to be followed up in the office in 2 and 6 weeks. Subjective Subjective Interval history since last seen: Patient seen and examined this morning. She states that her's pain is less while she is up and moving around, though she does have significant pain when she moves from the supine to seated and ambulatory position. She is tolerating a regular diet. She is passing flatus. Otherwise she is doing well with no nausea. Exam Const General: cooperative, healthy appearing, comfortable and no acute distress Nutritional Appearance: average body habitus Eyes General: appearance normal, both eyes and all related structures Neck Neck: normal visual inspection and supple Resp Effort & Inspection: normal respiratory effort and no cough Cardio Rate: regular rate Rhythm: regular rhythm GI Inspection: normal to inspection, non-distended and incision (Clean, dry, intact) Palpation: soft, not firm and no guarding Skin General skin exam: no rashes or lesions noted Extrem General: normal to inspection and no clubbing, cyanosis or edema Objective Last Vital Signs Temp 97.7 F 02/06/22 07:05 Pulse 78 02/06/22 07:05 Resp 17 02/06/22 07:05 BP 94/60 L 02/06/22 07:05 Pulse Ox 97 02/06/22 07:05 Laboratory Results - last 24 hr 02/05/22 08:41 WBC 7.48 RBC 3.79 L Hgb 11.3 D Hct 34.4 L MCV 91 MCH 29.8 MCHC 32.8 RDW 12.5 Plt Count 302 MPV 9.0 Immature Gran % 0.3 Neutrophils % 73.6 Lymphocytes % 12.7 Monocytes % 11.2 Eosinophils % 1.9 Basophils % 0.3 Nucleated RBC % 0.0 Absolute Neutrophils 5.51 Absolute Lymphocytes 0.95 L Absolute Monocytes 0.84 H Absolute Eosinophils 0.14 Absolute Basophils 0.02
--- NOTE | 2022-02-06 07:24 | DSE_ITS ---
DS: Diagnosis Discharge Diagnosis (1) Status post abdominal hysterectomy: Status: Acute Asessment and Plan: Postoperative day #2 status post total abdominal hysterectomy with bilateral salpingectomy. Doing well. Discharge home today. Tolerating regular diet with stable vital signs. Tolerating oral pain medication without difficulty. Follow-up in the office in 2 and 6 weeks Discharge Plan Disposition Patient Disposition: HOME Condition: Good Discharge Details Reason For Visit: [facility] Admit Date/Time: 02/04/22 07:22 Admit Provider: Tiffany Sheridan Attending Provider: Tiffany Sheridan Primary Care Provider: Zayda Eubanks Hospital Course Hospital Course: Patient was admitted to [facility] on 02/04/2022 where she underwent a scheduled total abdominal hysterectomy with bilateral salpingectomy due to markedly enlarged fibroids. Her procedure was uncomplicated with a reasonable blood loss. Postoperative hemoglobin is stable. She had an uncomplicated postoperative course where she was transition from parenteral pain medication to oral pain medication. She had stable vital signs upon discharge. She is ambulatory, t olerating a regular diet. She will be discharged to home to be followed up in the office in 2 and 6 weeks. Home Meds and New Rx's Prescriptions: New hydromorphone [Dilaudid] 2 mg tablet 2 mg PO Q6H PRNQty: 10 0RF ibuprofen 600 mg tablet 600 mg PO Q8H PRNQty: 30 1RF Continued bupropion HCl [Wellbutrin XL] 150 mg tablet extended release 24 hr 150 mg PO DAILY Qty: 90 3RF magnesium oxide 400 mg magnesium tablet 400 mg PO DAILY vitamin B complex Tablet 1 tab PO DAILY turmeric root extract 500 mg capsule 500 mg PO DAILY promethazine 25 mg tablet 25 mg PO Q8H PRN (Reason: nausea and vomiting) Qty: 60 1RF lorazepam 2 mg tablet 2 mg PO DAILY PRN celecoxib [Celebrex] 100 mg capsule 100 mg PO BID PRN (Reason: pain) Qty: 60 0RF ondansetron 4 mg Tablet,Disintegrating 4 mg PO DIRECTED zolmitriptan 5 mg spray,non-aerosol 1 spray INTRANASAL DIRECTED Discontinued naproxen sodium [Aleve] 220 MG capsule 440 mg PO PRN PRN Discharge Instructions Stand Alone Forms: DSU Post Facilities Clerk SurgeryW/Incision Activity:: No heavy lifting and pelv Equipment/Supplies:: No Equipment Needed Diet:: As Tolerated Discharge Orders Discharge Orders: Discharge Order (Routine); Ordered 02/06/22 Ordered By: Tiffany Sheridan DS: Summary Time Spent with Patient providing and/or coordinating discharge services: Less than 30 minutes Status at Discharge Functional status at discharge: independent ambulation Overall status at discharge: patient is progressing back to baseline Mental Status: mental status grossly normal Speech and Movement: speech and movement normal Mood: congruent mood Affect: normal affect Exam Narrative Exam Narrative: Please see physical exam from progress note dated 02/06/2022 Psych Mental Status: mental status grossly normal Speech and Movement: speech and movement normal Mood: congruent mood Affect: normal affect DS: Data Vitals/I&O Vitals and I&O: Vital Signs Temperature 97.7 F 02/06/22 07:05 Temperature Source Tympanic 02/06/22 07:05 Pulse 78 02/06/22 07:05 Pulse Rhythm Regular 02/05/22 19:26 Respiratory Rate 17 02/06/22 07:05 Respiratory Effort Non-Labored 02/05/22 19:26 Respiratory Depth Normal 02/05/22 19:26 Blood Pressure 94/60 L 02/06/22 07:05 Pulse Oximetry 97 02/06/22 07:05 Respiratory End-tidal CO2 36 02/04/22 13:05 Oxygen Delivery Method Room Air 02/06/22 07:05 Oxygen Flow Rate 0 02/06/22 07:05 Pain Level 3 02/06/22 07:05 Comment 02/05/22 06:27 Intake & Output 02/05/22 02/05/22 02/06/22 11:59 23:59 11:59 Intake Total 537.5 / 537.5 Output Total 1600 / 2850 1250 / 2850 Balance -1062.5 / -2312.5 -1250 / -2312.5 Intake: IV 537.5 / 537.5 Output: Urine 1600 / 2850 1250 / 2850 Other: Urine Color Yellow Yellow Urine Appearance Clear Clear Comment d/c by this rN Voiding Methods Toilet Data Completed and Pending Labs on day of discharge: Labs from last 24 hours 02/05/22 08:41 WBC 7.48 RBC 3.79 L Hgb 11.3 D Hct 34.4 L MCV 91 MCH 29.8 MCHC 32.8 RDW 12.5 Plt Count 302 MPV 9.0 Immature Gran % 0.3 Neutrophils % 73.6 Lymphocytes % 12.7 Monocytes % 11.2 Eosinophils % 1.9 Basophils % 0.3 Nucleated RBC % 0.0 Absolute Neutrophils 5.51 Absolute Lymphocytes 0.95 L Absolute Monocytes 0.84 H Absolute Eosinophils 0.14 Absolute Basophils 0.02 PFSH All Active Problems Status post abdominal hysterectomy (Acute) Postoperative day #1 status post total abdominal hysterectomy with bilateral salpingectomy due to markedly enlarged uterine fibroids.02/04/2022 Migraine headache (Chronic) Fibromyalgia (Chronic) Right ankle instability (Chronic) Uterine fibroid (Acute) Depression (Chronic) Uterine fibroid (Acute) 11/2021-3 large uterine fibroids confirmed by ultrasound and MRI, Medical History PONV (postoperative nausea and vomiting) Surgical History History of ankle surgery Right avulsion repair S/P arthroscopy of left shoulder (~2007) x 2 at [facility] S/P right rotator cuff repair (~2014) Dr. Butterfield Family History Mother Stroke 40s Father No problems noted. Brother No problems noted. Maternal Grandfather Heart disease Alcohol abuse Maternal Grandmother , at 78 No problems noted. Paternal Grandfather No problems noted. Paternal Grandmother No problems noted. Social History Smoking/Tobacco Use Status: Never Smoking risk assessment performed?: Yes Alcohol Intake: current Alcohol Intake frequency: a few times a week Alcohol type: other Drug use: Never Substance use type: does not use Housing: apartment Communication Needs: None Pets and animals: Yes Pets and animals: dog(s) Sexually active: No Do you think of yourself as: lesbian/vargas/homosexual Current gender identity: female What is your relationship status?: never How often do you talk on the phone with friends or family?: once per week Do you belong to any clubs or organized social groups?: no Panel score (0-1 are the most socially isolated patients): 0 What type of physical activity do you participate in: walking and bicycling Frequency: 1-2 times per week Guerda/Nondenominational: No preference Special guerda needs: No Seatbelt use: always Drive intox or ride w/intox class a regional truck driver: No Do you feel safe at home: Yes Do you feel safe in your relationship?: Yes History History 0 Para Hx # Term Pregnancies Multiple births Hx # Pregnancies Ectopic pregnancies AB induced Hx Number of Living Children AB spontaneous
[2022-02-06] MEDS: buPROPion-XL 150 MG TABCR PO (07:57)
[2022-02-06] MEDS: Docusate Sodium 100 MG CAP PO (07:57)
[2022-02-06] MEDS: Magnesium Oxide 400 MG TAB PO (07:57)
--- NOTE | 2022-02-06 11:23 | PDOC.CMDIS ---
- If Service Date Differs Date of service: 02/06/22 Time of Service: 11:23 LACE Index Scoring Tool - Questions: Length of Stay (in days): 2 Acuity (Admit via E.D.?): No E.D. Visits: 1 - Answers: Total Score: 3 Risk of Readmission: Low Risk Care Management Discharge Reason for Hospitalization: [facility] Discharge Plan: Lissa will be discharged home with no new services. She will follow up with her surgeon and plan of care and transport with a friend. Patient/Family Education Needs: Review of discharge instructions, limitations, follow up plan, activity discuss Ask Me Three
== END 2022-02-06 10:22 | disposition home or self-care (01) | DRG 743 ==
LOC: PDS 14:02 → MS 14:03
PROVIDERS: Admitting Provider Obstetrics & Gynecology; PCP Nurse Practitioner Family; Visit Provider Obstetrics & Gynecology
PROC: 0UT90ZZ Resection of Uterus, Open Approach (ICD-10-PCS; CPT 58150; principal; 2022-02-04 09:15)
DX: D25.9 Leiomyoma of uterus, unspecified (principal); F32.A Depression, unspecified; M79.7 Fibromyalgia; G43.909 Migraine, unspecified, not intractable, without status migrainosus
CPT/HCPCS: 58150; 52000; 36415; 87635; 85025; 88307; J0690; J1200; J2250; J2370; J2405; J2704; J3010

== ENCOUNTER 2022-06-07 17:39 | Emergency (ER) | payer OTHER, SELFPAY ==
[2022-06-07 17:43] VITALS: BP 111/53; PULSE 74; RESP 16; TEMP 36.7; O2SAT 100
[2022-06-07] MEDS: diphenhydrAMINE 50 MG/ML VIAL 25 MG IVP (18:23)
[2022-06-07] MEDS: Prochlorperazine 10 MG/2 ML VIAL IVP (18:24)
[2022-06-07] MEDS: Amoxicillin 875/Clav. 125 TAB PO (18:24)
--- NOTE | 2022-06-07 18:39 | ED.GENADUL_ITS ---
Discharge Plan Disposition Patient Disposition: Home Condition: Stable Discharge Details Clinical Impression: Migraine headache, Sinusitis Primary Care Provider: Zayda Eubanks ED Provider: Titi Sharif Home Meds and New Rx's Prescriptions: New amoxicillin-pot clavulanate 875-125 mg tablet 1 tab PO BID Qty: 13 0RF Continued promethazine 25 mg tablet 25 mg PO Q8H PRN (Reason: nausea and vomiting) Qty: 60 1RF lorazepam 2 mg tablet 2 mg PO DAILY PRN naproxen sodium [Aleve] 220 mg Capsule 220 mg PO BID PRN ondansetron 4 mg Tablet,Disintegrating 4 mg PO DIRECTED zolmitriptan 5 mg spray,non-aerosol 1 spray INTRANASAL DIRECTED Discharge Instructions Instructions: Sinusitis (ED), Migraine Headache (ED) Referrals: Zayda Eubanks, LINDA [Primary Care Provider] - Medical Decision Making 1844 -- 36-year-old male with history of migraine headache aches, presents with headache consistent with prior migraines and sinus congestion over the past 5 to 6 days. Patient is neurologically intact. No meningeal signs. Plan to treat with Compazine and Benadryl IV as well as IV fluid bolus. Patient notes Toradol has cause rebound headache in the past and so we will avoid this. Plan to treat sinusitis with Augmentin. 1942 --patient reassessed and notes significant improvement in pain now 06/16. Plan for discharge with outpatient follow-up. Patient stable and requesting discharge. HPI General Mode of arrival: ambulatory . Date/Time Provider Initiated Documentation: 06/07/22 17:48 . Limitations to Documentation: no limitations . Information obtained by: patient . HPI Narrative: 36-year-old female with history of migraine headaches, presents with chief complaint of headache. Patient notes headache started 5 to 6 days ago and has persisted. Headache is localized frontal. She notes she took her triptan prescribed migraine medication and it did not help. Headache is similar to prior migraine headaches associated with sinus congestion. She notes she has had sinus congestion and pain over the past 5 to 6 days. She has no associated fever. Related Data Home Medications Medication Instructions Recorded Confirmed promethazine 25 mg tablet 25 mg PO Q8H PRN nausea and 10/25/20 06/07/22 vomiting #60 tabs lorazepam 2 mg tablet 2 mg PO DAILY PRN 02/02/22 06/07/22 ondansetron 4 mg disintegrating 4 mg PO DIRECTED 02/03/22 06/07/22 tablet zolmitriptan 5 mg nasal spray 1 spray intranasal DIRECTED 02/03/22 06/07/22 amoxicillin 875 mg-potassium 1 tab PO BID #13 tabs 06/07/22 clavulanate 125 mg tablet naproxen sodium 220 mg capsule 220 mg PO BID PRN 06/07/22 06/07/22 (Meryl) Previous Rx's Medication Instructions Recorded promethazine 25 mg tablet 25 mg PO Q8H PRN nausea and 10/25/20 vomiting #60 tabs amoxicillin 875 mg-potassium 1 tab PO BID #13 tabs 06/07/22 clavulanate 125 mg tablet Allergies Allergy/AdvReac Type Severity Reaction Status Date / Time codeine [Codeine] AdvReac n/v Verified 06/07/22 17:56 ketorolac AdvReac n/v Verified 06/07/22 17:56 ketorolac tromethamine AdvReac Nausea Verified 06/07/22 17:56 [From Toradol] meperidine HCl [From Demerol] AdvReac n/v Verified 06/07/22 17:56 oxycodone [Oxycodone] AdvReac n/v Verified 06/07/22 17:56 oxycodone HCl AdvReac n/v Verified 06/07/22 17:56 [From OxyContin] Narcotics AdvReac Uncoded 06/07/22 17:56 General Stated Complaint: Headache MIKHAIL: 3 Review of Systems All systems reviewed & are unremarkable except as noted in HPI and below Constitutional Constitutional: Denies fever(s) Eyes Eyes: Denies blurry vision ENT Ears, Nose, Mouth, and Throat: Reports as per HPI PFSH All Active Problems (Updated 06/07/22 @ 19:44 by Titi Sharif MD) Migraine headache (Chronic) Sinusitis (Acute) Status post abdominal hysterectomy (Acute) Postoperative day #1 status post total abdominal hysterectomy with bilateral salpingectomy due to markedly enlarged uterine fibroids.02/04/2022 Migraine headache (Chronic) Fibromyalgia (Chronic) Right ankle instability (Chronic) Uterine fibroid (Acute) Depression (Chronic) Uterine fibroid (Acute) 11/2021-3 large uterine fibroids confirmed by ultrasound and MRI, Medical History PONV (postoperative nausea and vomiting) Surgical History History of ankle surgery Right avulsion repair S/P arthroscopy of left shoulder (~2007) x 2 at [facility] and [facility] S/P right rotator cuff repair (~2014) Dr. Butterfield Family History Mother Stroke 40s Father No problems noted. Brother No problems noted. Maternal Grandfather Heart disease Alcohol abuse Maternal Grandmother , at 78 No problems noted. Paternal Grandfather No problems noted. Paternal Grandmother No problems noted. Social History Smoking/Tobacco Use Status: Never Smoking risk assessment performed?: Yes Alcohol Intake: current Alcohol Intake frequency: a few times a week Alcohol type: other Drug use: Never Substance use type: does not use Housing: apartment Communication Needs: None Pets and animals: Yes Pets and animals: dog(s) Sexually active: No Do you think of yourself as: lesbian/vargas/homosexual Current gender identity: female What is your relationship status?: never How often do you talk on the phone with friends or family?: once per week Do you belong to any clubs or organized social groups?: no Panel score (0-1 are the most socially isolated patients): 0 What type of physical activity do you participate in: walking and bicycling Frequency: 1-2 times per week Guerda/Mormonism: No preference Special guerda needs: No Seatbelt use: always Drive intox or ride w/intox driver examiner: No Do you feel safe at home: Yes Do you feel safe in your relationship?: Yes History History 0 Para Hx # Term Pregnancies Multiple births Hx # Pregnancies Ectopic pregnancies AB induced Hx Number of Living Children AB spontaneous Exam Const General: cooperative and no acute distress HENMT Head: normocephalic and atraumatic Ears: TM normal on the right, EAC's normal, mastoids normal and TM abnormal (full on left) not with effusion and not erythematous Face and sinus: face symmetric, no erythema, no edema and tenderness bilaterally forehead and malar area Mouth: moist mucous membranes Throat: posterior oropharynx normal Eyes Conjunctivae: normal conjunctivae Sclera: normal sclerae EOM: EOM intact bilaterally Neck Neck: trachea midline Resp Auscultation: clear to auscultation bilaterally, no rales, no rhonchi and no wheezes Cardio Rate: regular rate and not tachycardic Rhythm: regular rhythm Neuro General: patient alert, patient awake and tone normal Course Vital Signs Vital signs: Vital Signs Temperature 36.7 C 06/07/22 17:43 Pulse 74 06/07/22 17:43 Respiratory Rate 16 06/07/22 17:43 Blood Pressure 111/53 L 06/07/22 17:43 Pulse Oximetry 100 06/07/22 17:43 Temperature 36.7 C 06/07/22 17:43 Temperature Source Temporal Artery Scan 06/07/22 17:43 Pulse 74 06/07/22 17:43 Respiratory Rate 16 06/07/22 17:43 Respiratory Effort 06/07/22 17:48 Blood Pressure 111/53 L 06/07/22 17:43 Blood Pressure Position Sitting 06/07/22 17:43 Pulse Oximetry 100 06/07/22 17:43 Oxygen Delivery Method Room Air 06/07/22 17:43 Oxygen Flow Rate 0 06/07/22 17:43 Pain Level 7 06/07/22 17:48 Comment 06/07/22 17:43 PAWSS Have you Been Recently Intoxicated or Drunk Within the Last 30 days?: No Have you Ever Experienced Previous Episodes of Alcohol Withdrawal?: No Have you ever Experienced Withdrawal Seizures?: No Have you ever Experienced Delirium Tremens(DT)s?: No Have you ever undergone Alcohol Rehabilitation Treatment (i.e, inpt ot outpatient treatment programs)?: No Have you ever Experienced Blackouts?: No Have you ever Combined Alcohol with other Downers within the last 90 days?: No Have you ever Combined Alcohol with any other Substance of Abuse during the last 90 days?: No Positive Blood Alcohol level on Presentation? [PCS.BAL]: No Evidence of Increased Autonomic Activity (i.e. HR>120, tremor, sweating, agitation, nausea)?: No Result: 0
[2022-06-07] MEDS: Normal Saline 50 ML 300 ML (19:37)
[2022-06-07 20:02] VITALS: BP 97/50; PULSE 59; RESP 16; TEMP 36.6; O2SAT 99
== END 2022-06-07 20:17 | disposition home or self-care (01) ==
PROVIDERS: Emergency Provider Student in an Organized Health Care Education/Training Program; PCP Nurse Practitioner Family
DX: G43.909 Migraine, unspecified, not intractable, without status migrainosus (principal); J01.80 Other acute sinusitis
CPT/HCPCS: 96374; 96375; 99284; 99283; J0780; J1200

== ENCOUNTER 2022-11-25 01:55 | Outpatient (CLI) | payer OTHER, SELFPAY ==
--- NOTE | 2022-11-25 | DI.RAD_ITS ---
Exam(s) RF ARTHROGRAM RAD W CT OR MRI EXAM: RF ARTHROGRAM RAD W CT OR MRI CLINICAL HISTORY: BICEPS TENDINITIS RT SHOULDER, M75.21, SUPERIOR LABRUM ANT/POST SLAP TEAR. TECHNIQUE: 2D and realtime digital imaging was performed. CONTRAST MATERIAL: Water soluble contrast was utilized. COMPARISON: No exams were available for comparison FINDINGS: The Patient was greeted in the fluoroscopy room. The correct side was identified and the consent was reviewed with the patient and was signed. The patient was properly positioned on the fluoroscopy ta ble. The right shoulder was then prepped with Chloraprep and draped. The right shoulder injection s taring point was identified by the bony landmarks and fluoroscopy. The skin and soft tissue in the t ract of the injection or locally anesthetized. A spinal needle was then inserted into the right shou lder joint under fluoroscopic guidance. A small amount of Omnipaque solution was injected to confirm intraarticular placement. Once confirmed, the right shoulder was injected with a solution containin g Dotarem, Omnipaque and normal saline. A bandaid was placed on the injection site. The patient armando erated the procedure well and left the department in good condition. There is an MRI to follow. Ka,r=1.74 mGy IMPRESSION: Successful right shoulder injection. RADIATION DOSE DELIVERED:
--- NOTE | 2022-11-25 | DI.MRI_ITS ---
Exam(s) MR UPPER JOINT RT W EXAM: MR UPPER JOINT RT W CLINICAL HISTORY: BICIPS TENDINITIS RT SHOULDER, M75.21, SUPERIOR LABRUM ANT/POST SLAP TEAR. TECHNIQUE: Multiplanar multisequence MRI was performed. MR arthrogram was performed. COMPARISON: RF RF ARTHROGRAM RAD W CT OR MRI from 11/25/2022 FINDINGS: BONES: There is no fracture or contusion pattern. There is deformity of the anterior inferior glenoid suggesting prior Bankart's injury. JOINTS: The acromioclavicular joint is normal. The glenohumeral joint is normal. TENDONS: Supraspinatus: There does appear to be a full-thickness tear through the supraspinatus tendon. (Seri es [id number], image 12 through 14). Infraspinatus: Unremarkable. Subscapularis: Unremarkable. Teres Minor: Unremarkable. Biceps and [place]: Unremarkable. MUSCLES: Unremarkable. GLENOID LABRUM: There is degeneration seen at the anterior inferior glenoid labrum. SOFT TISSUES: Unremarkable. LIGAMENTS: Unremarkable. OTHER: There is contrast seen in the subacromial subdeltoid bursa. IMPRESSION: 1. Findings suspicious for full-thickness tear through the supraspinatus tendon. 2. Findings of prior Bankart injury with degeneration of the anterior inferior labrum. 3. No findings to suggest an acute labral tear. DATA REPOSITORY:
[2022-11-25] MEDS: Normal Saline - Diluent 50 ML VIAL IJ (10:18)
[2022-11-25] MEDS: Omnipaque 300 MG/ML 10 ML BTL IJ (10:21)
[2022-11-25] MEDS: Bupivacaine 0.5% Pres-Free 10 ML VIAL IJ (10:22)
== END 2022-11-25 02:15 ==
LOC: DI 01:56
PROVIDERS: PCP Nurse Practitioner Family; Visit Provider Specialist
DX: S43.431D Superior glenoid labrum lesion of right shoulder, subsequent encounter (principal); M75.21 Bicipital tendinitis, right shoulder; M75.41 Impingement syndrome of right shoulder; X58.XXXD Exposure to other specified factors, subsequent encounter; Z98.890 Other specified postprocedural states
CPT/HCPCS: 23350; 73222; 77002

== ENCOUNTER 2023-03-11 09:27 | Day surgery (SDC) | payer OTHER, SELFPAY ==
[2023-03-11] VITALS (24 sets, daily range): BP systolic 83–101; BP diastolic 44–62; PULSE 72–88; RESP 12–26; TEMP 36.5–36.8; O2SAT 18–100; BMI 21.7
--- NOTE | 2023-03-11 07:18 | W.PM.DSUDISC ---
Date of service: 03/11/23 Time of Service: 12:45 Discharge Plan Disposition Patient Disposition: Home Discharge Details Attending Provider: Eric Lu Primary Care Provider: Zayda Eubanks Home Meds and New Rx's Prescriptions: No Action promethazine 25 mg tablet 25 mg PO Q8H PRN (Reason: nausea and vomiting) Qty: 60 1RF lorazepam 2 mg tablet 2 mg PO DAILY PRN naproxen sodium [Aleve] 220 mg Capsule 220 mg PO BID PRN ondansetron 4 mg Tablet,Disintegrating 4 mg PO DIRECTED zolmitriptan 5 mg spray,non-aerosol 1 spray INTRANASAL DIRECTED Discharge Instructions Additional Instructions: Surgery: Right shoulder arthroscopy with [rotator cuff repair, biceps tenodesis, extensive debridement, and subacromial decompression.] Activity: [For 6 weeks,] you should keep your arm at your side in a neutral position at all times except for physical therapy. Do not try to lift or raise your arm using your own muscles. You should use the sling whenever you are out of the house. You may have to adjust the abduction pillow or remove it for comfort. At home it is best to remove the sling and rest the arm on a pillow at your side or support the operative side with your other hand. You may allow the arm to dangle at your side. A physical therapy prescription will be sent electronically to begin in about 3 weeks. [You should gradually increase range of motion motion and use of your shoulder. You may use your shoulder for all regular activities while protecting biceps repair. Avoid any weighted elbow flexion or resisted supination for 6-8 weeks. No heavy lifting, reaching overhead, or lifting away from body for approximately 2-3 months. You may use the sling whenever you are out of the house for a few weeks. At home it is best to remove the sling and rest the arm on a pillow at your side or support the operative side with your other hand. A physical therapy prescription will be sent electronically to start in about 2 weeks.] Prescriptions: Aspirin 81 mg take 1 daily to prevent a blood clot for 7 days Naproxen 250 mg take 1-2 every 12 hours with a meal as needed for moderate pain [Oxycodone 5 mg take 1-2 every 4-6 hours as needed for severe pain] You may use [id number] Tylenol (acetaminophen) as needed for mild pain. These pain medications may be taken all at once or in different combinations as needed. Also, recommend Colace (docusate) as a stool softener as surgery and pain medicine cause constipation. You may try [id number] diphenhydramine (Benadryl) 25-50 mg nightly as a sleep aid Dressings: Remove shoulder bandage after 3 days. Leave the sticky Steri-Strips in place until they fall off or remove them after you shower. Cover the incisions with Band-Aids or leave them open to air. [The biceps bandage (inside upper arm) is glued on separately. You may leave this one on a few days longer if it is difficult to remove. There is also glue underneath this bandage that can be left in place until it peels off.] You may shower after 5 days. Follow-up: 10-[address] Lu You may take off the leg compression stockings this evening at home. You may also leave them on a few days longer if you have a history of leg swelling or edema. Let us know right away if you develop any redness, drainage, fevers, chest pain, or trouble breathing. Do not drink alcohol or drive for at least 24 hours after anesthesia. Please call the office during business hours with any questions or concerns. Discharge Orders Discharge Orders: Discharge Order (Routine); Ordered 03/11/23 Ordered By: Michael Sterling
--- NOTE | 2023-03-11 07:25 | W.PM.DSUDISC ---
Date of service: 03/11/23 Time of Service: 12:00 Discharge Plan Disposition Patient Disposition: Home Condition: Stable Discharge Details Attending Provider: Eric Lu Primary Care Provider: Zayda Eubanks Home Meds and New Rx's Prescriptions: New naproxen 250 mg tablet 250 - 500 mg PO BID PRNQty: 40 0RF Rx Instructions: take with a meal aspirin 81 mg tablet,delayed release (DR/EC) 81 mg PO DAILY 7 Days Qty: 7 0RF tramadol 50 mg tablet 50 mg PO Q8H PRN (Reason: severe pain) Qty: 9 0RF Continued promethazine 25 mg tablet 25 mg PO Q8H PRN (Reason: nausea and vomiting) Qty: 60 1RF lorazepam 2 mg tablet 2 mg PO DAILY PRN ondansetron 4 mg Tablet,Disintegrating 4 mg PO DIRECTED zolmitriptan 5 mg spray,non-aerosol 1 spray INTRANASAL DIRECTED Discontinued naproxen sodium [Aleve] 220 mg Capsule 220 mg PO BID PRN Discharge Instructions Additional Instructions: Surgery: Right shoulder arthroscopy with revision rotator cuff repair (supraspinatus), biceps tenodesis, extensive debridement (including removal of loose prior permanent suture material), and subacromial decompression. Activity: For 6 weeks, you should keep your arm at your side in a neutral position at all times except for physical therapy. Do not try to lift or raise your arm using your own muscles. You should use the sling whenever you are out of the house. You may have to adjust the abduction pillow or remove it for comfort. At home it is best to remove the sling and rest the arm on a pillow at your side or support the operative side with your other hand. You may allow the arm to dangle at your side. A physical therapy prescription will be sent electronically to begin in about 3 weeks. STANDARD RCR and BT protocol. Prescriptions: Aspirin 81 mg take 1 daily to prevent a blood clot for 7 days Naproxen 250 mg take 1-2 every 12 hours with a meal as needed for moderate pain Tramadol 50 mg take 1-2 every 6 hours as needed for severe pain You may use [id number] Tylenol (acetaminophen) as needed for mild pain. These pain medications may be taken all at once or in different combinations as needed. Also, recommend Colace (docusate) as a stool softener as surgery and pain medicine cause constipation. You may try [id number] diphenhydramine (Benadryl) 25-50 mg nightly as a sleep aid Dressings: Remove shoulder bandage after 3 days. Leave the sticky Steri-Strips in place until they fall off or remove them after you shower. Cover the incisions with Band-Aids or leave them open to air. You may shower after 5 days. Follow-up: 10-[address] Lu You may take off the leg compression stockings this evening at home. You may also leave them on a few days longer if you have a history of leg swelling or edema. Let us know right away if you develop any redness, drainage, fevers, chest pain, or trouble breathing. Do not drink alcohol or drive for at least 24 hours after anesthesia. Please call the office during business hours with any questions or concerns. Discharge Orders Discharge Orders: Discharge Order (Routine); Ordered 03/11/23 Ordered By: Michael Sterling DS: Diagnosis Discharge Diagnosis (1) Instability of right shoulder joint: Status: Acute (2) Rotator cuff tear, right: Status: Acute (3) Tendonitis of long head of biceps brachii of right shoulder: Status: Acute (4) Chondromalacia, right shoulder: Status: Acute (5) Painful orthopaedic hardware: Status: Acute
--- NOTE | 2023-03-11 07:28 | W.PM.OP ---
Date of service: 03/11/23 Time of Service: 12:00 Operative Note Operative Note DATE OF PROCEDURE: 03/11/23 PRE-OP DIAGNOSIS: Right: 1. Rotator cuff tear 2. SLAP tear 3. Labral tear 4. Symptomatic hardware 5. Chondromalacia 6. Bursitis POST-OP DIAGNOSIS: same PROCEDURE: Right: 1. Rotator cuff repair, CPT# 87709. This involved repair suture repair of the supraspinatus defect 2. Arthroscopic biceps tenodesis, CPT# 80953. This involved arthroscopically suturing and reattaching the long head of the biceps tendon to the proximal humerus at the superior margin of the bicipital groove with a screw at the correct tension. 3. Extensive debridement, CPT# 38675. This involved using arthroscopic hand instruments, power instruments, and radiofrequency instruments to release the long head of the biceps tendon and debride areas of labral tearing, SLAP tearing, synovitis, release rotator interval and subscapularis capsular scarring, and lightly debride chondromalacia about the glenoid and humeral head working within the glenohumeral joint anteriorly, superiorly and posteriorly. Also included removal of retained permanent suture material from multiple sites of prior repairs anterior glenoid, posterior inferior, and bursal rotator cuff. 4. Subacromial decompression with partial acromioplasty, CPT# 86592. This involved using arthroscopic power instruments and a radiofrequency wand to complete a bursectomy and minimally re? abrade the undersurface of the acromion. The volleyball assistant coach was medically required in order to help assist in techniques above, which require positioning the arm, holding the arthroscope, and manipulating multiple instruments and sutures at the same time. This cannot be done without the help of an experienced volleyball assistant coach. SURGEON: Eric Lu GEOPHYSICIST: Michael Sterling ANESTHESIA TYPE: General LMA/ETT and Primary Nerve Block Refer to Anesthesia Record ESTIMATED BLOOD LOSS: 10 PATHOLOGY: none sent COMPLICATIONS: None Patient was transported to: PACU Patient's condition: stable Implants: Arthrex: 4.75mm SwiveLocks x 1 Indications: The patient was diagnosed with the above conditions and appropriately indicated for surgical intervention. Please see complete medical record for details. Findings: Exam under anesthesia: Full range of motion, no appreciable anterior or posterior instability, notable reproducible glenohumeral crepitation with range of motion Glenohumeral joint: Fairly significant glenohumeral chondromalacia with high-grade cartilage loss multiple aspects of the humeral head and glenoid centrally to anteriorly. Probable anterior glenoid bone loss. Apparent chronically failed labral repair anteriorly inferiorly and posteriorly. SLAP tear at biceps tendon anchor. No purulence or overt signs of infection. Somewhat frayed and a bit diminutive anterior labrum. Significant synovitis about the long head of the biceps tendon but intra-articular segment otherwise intact. Subscapularis with significant scarring from the prior rotator interval closure with widening and flattening, but no significant structural disruption from the lesser tuberosity. Minor debris synovial cartilaginous throughout glenohumeral joint and axillary recess. Loose and engaging multiple sites of suture material knotted anteriorly and loose free ends inferiorly posteriorly engaging in the glenohumeral joint. Probably healed but thinned articular supraspinatus repair. No loose suture here articular side Subacromial space: Significant bursal scarring and bursitis between rotator cuff bursa and acromion bone. Loose bursal rotator cuff repair sutures with high?grade but focal small defect longitudinal maybe 5mm. No other bursal rotator cuff repair. Procedure Description: In the operating room, general anesthesia was induced. Bilateral shoulders were examined. The patient was positioned in the beachchair position. All bony prominences were well-padded. Preoperative antibiotics were administered. The shoulder was prepped and draped in the usual sterile fashion. The correct patient, procedure, and side of the procedure were all verified prior to incision. Starting through the patient's previous posterior portal a standard complete diagnostic arthroscopy was performed of the glenohumeral joint including inspection of the long head of the biceps, anterior and superior labrum, subscapularis tendon, supraspinatus and infraspinatus tendons, and axillary recess. The glenoid and humeral head cartilage as well as the posterior labrum were inspected from the previous anterior viewing portal. Significant findings and interventions noted above. A rigid 7 mm cannula was inserted anteriorly. Significant time was spent meticulously performing an extensive debridement. Of note, pituitary rongeur was were used to remove loose retained engaging permanent suture material from the anterior labral repair. Portals were switched and permanent suture retained material was removed from the posterior inferior site as well. These were divided into 2 separate tissue and hardware samples into separate specimen cups. Mechanical shaver was used to remove and debride significant synovitis especially anteriorly about the biceps tendon and smooth and contour chondromalacia as needed on the central glenoid. The arthroscopic scissors were used to release and restore normal subscapularis margin to the capsule centrally to medially. Permanent suture material was removed anteriorly and laterally from the rotator interval closure as well. Once all soft tissue labrum, synovitis, capsule, and cartilage and bone structures had been thoroughly inspected debrided glenohumeral joint was greatly improved. There was no more tissue or permanent suture material engaging in the glenohumeral joint. The cartilaginous surfaces were smooth. There was no structurally sound or healthy labrum appropriate for revision repair. The anterior bone loss was somewhat concerning as the glenoid did not have the usual pear-shaped, but the narrowing and chondromalacia make arthritis more of a concern and instability. The subscapularis was not healthy but did not have any apparent need for repair. The supraspinatus was thinned at the site of prior repair but not overtly failed so did not require revision repair here. An all-arthroscopic suprapectoral biceps tenodesis was performed through an anterior portal using a Loop N Tack method with a SutureTape FiberLink cinched around and through the tendon. The biceps was tenotomized from the labrum and fixated with a suture anchor at the superior margin of the bicipital groove. The extra knotless repair mechanism was used to add additional security to the biceps repair, which was tested and quite stable. Starting through the posterior portal, the arthroscope was directed into the subacromial space. One of the small lateral portals was reused. A combination of power instruments and a radiofrequency ablator were used to debride bursitis anteriorly, posteriorly, and laterally as well as expose and smooth bone minimal residual on the undersurface of the acromion. The coracoacromial ligament was released. The bursectomy was completed viewing laterally and working from posteriorly and the rotator cuff was thoroughly inspected with findings noted above. The rotator cuff, bursa, and bony acromion were significantly scarred and adhesed together medially and posteriorly making the decompression challenging. The site of prior rotator cuff repair was exposed and inspected. There were loose knotted sutures over a small residual tear still in the supraspinatus. The loose sutures were removed with pituitary rongeurs and sent as a third specimen for cultures. It did probe from bursal he moderate to high thickness, not obviously full-thickness, but given the contrast from the arthrogram in the bursal space was likely a high-grade tear. It was a longitudinal and given young age high activity level, decision was made to proceed with revision repair even in this somewhat degenerative shoulder setting. The 90 degree lasso was used through the anterior portal to shuttle a suture tape repair stitch in a simple configuration widely incorporating supraspinatus tissue given the poor prior healing and secured with an [facility] arthroscopic low-profile knot. The repair defect was closed. No additional repair was indicated and the remainder of the bursal rotator cuff once released from bursa and subacromial and scarring was largely intact. The shoulder was drained of arthroscopic fluid. All portal sites were copiously irrigated. These incisions were closed using 3-0 Monocryl in a buried fashion and then covered with Mastisol, Steri-Strips, Xeroform, dry gauze, and ABDs. The dressings were covered and secured with Medipore tape. The operative extremity was placed into a sling for immobilization. The patient awoke from anesthesia without complication and was transferred to the recovery room in a stable condition.
--- NOTE | 2023-03-11 10:14 | W.ANESPRE ---
General Info Date of Service Date Performed: 03/11/23 Height: 5 ft 4 in Weight: 57.3 kg Body Mass Index (BMI): 21.7 Surgical Procedure: Operation Date: 03/11/23 12:25 Proposed Procedure Side Surgeon p Shoulder Possible Revision Labrum and/or Rotator Cuff Arthroscopic, Extensive Debridement, Biceps Tenodesis, Subacromial Decompression Right Eric Lu MD Meds Allergies and Home Medications Allergies Allergy/AdvReac Type Severity Reaction Status Date / Time codeine [Codeine] AdvReac n/v Verified 03/11/23 09:46 ketorolac AdvReac n/v Verified 03/11/23 09:46 ketorolac tromethamine AdvReac Nausea Verified 03/11/23 09:46 [From Toradol] meperidine HCl [From Demerol] AdvReac n/v Verified 03/11/23 09:46 oxycodone [Oxycodone] AdvReac n/v Verified 03/11/23 09:46 oxycodone HCl AdvReac n/v Verified 03/11/23 09:46 [From OxyContin] Narcotics AdvReac Uncoded 03/11/23 09:46 Home Medication Medication Instructions Recorded promethazine 25 mg tablet 25 mg PO Q8H PRN nausea and 10/25/20 vomiting #60 tabs lorazepam 2 mg tablet 2 mg PO DAILY PRN 02/02/22 ondansetron 4 mg disintegrating 4 mg PO DIRECTED 02/03/22 tablet zolmitriptan 5 mg nasal spray 1 spray intranasal DIRECTED 02/03/22 naproxen sodium 220 mg capsule 220 mg PO BID PRN 06/07/22 (Aleve) Current Visit Medications: Current Medications Generic Name Dose Route Start Last Admin Trade Name Freq PRN Reason Stop Dose Admin Ringer's Solution 1,000 mls @ 30 mls/hr 03/11/23 06:00 IV 04/09/23 23:59 INFUSION [facility] Cefazolin Sodium/Dextrose 2 gm in 50 mls @ 100 mls/hr 03/11/23 06:00 Ancef Duplex IVPB 04/09/23 23:59 PREOP [facility] IV Miscellaneous Supplies 1 each 03/11/23 06:00 Iv Access IV 04/09/23 23:59 DIRECTED [facility] Oxycodone HCl 0 mg 03/11/23 07:17 Oxycodone 5 Mg Tab PO 04/10/23 07:16 Q3H PRN PRN Pain Sodium Chloride 0 ml 03/11/23 06:00 Normal Saline Flush 10 Ml Syr IV 04/09/23 23:59 PRN PRN Sodium Chloride 0 ml 03/11/23 06:00 Normal Saline 10 Ml Vial IJ 04/09/23 23:59 DIRECTED PRN Sterile Water 0 ml 03/11/23 06:00 Water,Injection,Sterile 10 Ml Vial IJ 04/09/23 23:59 DIRECTED PRN PFSH Active Problems Active Problems: Problem Status Onset Code 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 Rotator cuff tear, right M75.101 Tendonitis of long head of biceps brachii of right shoulder M75.21 Sinus pressure J34.89 Recurrent sinus infections J32.9 Status post abdominal hysterectomy Z90.710 Migraine headache G43.909 Fibromyalgia M79.7 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 Butterfield Tobacco Smoking/Tobacco Use Status: Never Alcohol Alcohol Intake: current Alcohol intake frequency: a few times a week Alcohol type: other Substance Use Substance use: Never Substance use type: does not use Prental History History 0 Para Hx # Term Pregnancies Multiple births Hx # Pregnancies Ectopic pregnancies AB induced Hx Number of Living Children AB spontaneous Vital Signs and Lab Results Vital Signs Most Recent Vital Signs in EMR: Most Recent Vital Signs Temp Pulse Resp BP Pulse Ox 36.6 C 83 18 96/55 L 18 L 03/11/23 09:37 03/11/23 09:37 03/11/23 09:37 03/11/23 09:37 03/11/23 09:37 Lab Results Blood Type / Crossmatch: No Data to Display Complete Blood Count: No Data to Display Complete Metabolic Panel: No Data to Display Liver Function Panel: No Data to Display Coagulation Panel: No Data to Display Cardiac Panel: No Data to Display Arterial Blood Gas: No Data to Display Venous Blood Gas: No Data to Display Pancreas Panel: No Data to Display Thyroid Panel: No Data to Display Infectious Disease: No Data to Display Blood Cultures: No Data to Display Toxicology Panel: No Data to Display Panel: No Data to Display Anesthesia Assessment and Plan Anesthesia History Personal History: PONV Family History: No Family History of Anesthesia Complications Exercise Tolerance Exercise Tolerance: Metabolic Equivalents>4 Cardiac & Pulmonary Exam Cardiac Exam: Normal S1/S2 Heart Sounds Pulmonary Exam: Clear Bilateral Breath Sounds Implantable Cardiac Device Does patient have a Pacemaker or an ICD?: No Airway Exam Known Difficult Airway: No Mallampati Class: 1 Mouth Opening: Normal (> 3cm) Thyromental Distance: Greater than 3 cm Neck Range of Motion: Full ROM Neck Circumference: Normal Teeth Condition: Normal Dentition ASA Classification ASA Score: ASA 2 Emergency Case?: No NPO Status NPO Status: NPO Clears >2 hours, Solids >8 hours Status Status: History of Hysterectomy Anesthesia Plan Resuscitation Status: Full Code Anesthesia Technique: General Anesthesia Airway Planned: Endotracheal Tube Pain Management: Surgeon and patient request nerve block Monitors Used: Standard Monitors Preoperative Comments:: 37 yo female for shoulder scope. Sig PMHx: denies major. Previous Anes: - hyst, mac 3 grade 1.
[2023-03-11] MEDS: Lactated Ringers 1,000 ML 30 ML IV (10:15)
[2023-03-11] MEDS: ceFAZolin 2 GM/50 ML BAG IVPB (11:01)
--- NOTE | 2023-03-11 11:32 | W.ANESNERVE ---
Nerve Block Single Injection Procedure Date and Time Date Performed: 03/11/23 Procedure Start: 10:50 Location Where Procedure Performed Procedure Location: Day Surgery Unit Reason Performed: Postoperative Analgesia Requesting Provider: Eric Lu Timeout Performed Timeout Performed: Yes Monitoring Used ECG, Blood Pressure and SpO2 Sterility Sterility: Hand Hygiene, Surgical Cap, Surgical Mask, Sterile Gloves and Chlorhexidine Sedation Given During Procedure Sedation Given (Indicate Dose Given): Versed IV Dose:: 2 mg Patient Mental Status Patient Mental Status: Awake Nerve Block 1st Nerve Block: Laterality: Right Block Type: Interscalene Ultrasound Image Saved?: Yes Needle / Catheter Used: 100mm SonoPlex II Local Anesthetic Bolus (Indicate Dose Given): Lidocaine used for local infiltration of skin, Injected in 3-5ml increments after negative blood aspiration, Bupivacaine 0.5% Dose:: 10 mL and Exparel Dose:: 10 mL Additives (Indicate Dose Given): None Ultrasound: Sterile probe cover and gel used Nerve Stimulator: Supplement to Ultrasound use and No twitch or parasthesia noted < 0.5 mA Paresthesia: None Procedure Tolerated: No Complications Procedure Outcome: Successful Performed By: Rafi Curry
[2023-03-11] MEDS: EPINEPHrine 10 MG/10 ML ML (12:41)
--- NOTE | 2023-03-11 13:52 | W.ANESPOSTOP ---
Postoperative Evaluation Date, Time and Location Date Performed: 03/11/23 Time Performed: 13:52 Patient Location: PACU Vital Signs Most Recent Imported Vital Signs: Most Recent Vital Signs Temp Pulse Resp BP Pulse Ox 36.5 C 88 20 88/50 L 100 03/11/23 13:47 03/11/23 13:47 03/11/23 13:47 03/11/23 13:47 03/11/23 13:47 Pain Score Most Recent Pain Score: Most Recent Pain Score Pain Level 2 03/11/23 10:45 Assessment Mental Status: Arousable with meaningful communication Airway and Respiratory Function: Patent airway with normal (patient baseline) respiratory exam Cardiovascular Function: Hemodynamically Stable Hydration Status: Adequately Hydrated Nausea & Vomiting: No Nausea or Vomiting Pain: Pain is tolerable per patient Peripheral Nerve Block: Regional nerve block not resolved at time of post operative discharge
== END 2023-03-11 15:48 | disposition home or self-care (01) ==
PROVIDERS: PCP Nurse Practitioner Family; Visit Provider Student in an Organized Health Care Education/Training Program
PROC: (CPT 29827; principal; 2023-03-11 12:15)
DX: M25.311 Other instability, right shoulder (principal); M75.101 Unspecified rotator cuff tear or rupture of right shoulder, not specified as traumatic; M75.21 Bicipital tendinitis, right shoulder; M94.211 Chondromalacia, right shoulder; T84.84XA Pain due to internal orthopedic prosthetic devices, implants and grafts, initial encounter
CPT/HCPCS: 29827; 29828; 29823; 29826; 76942; 87070; 87075; 87205; J0131; J0171; J0690; J1100; J2001; J2250; J2371; J2405; J2704

== ENCOUNTER 2023-04-27 13:31 | Outpatient (CLI) | payer OTHER, SELFPAY ==
[2023-04-27 11:25] LABS: Absolute Basophil Count 0.06 10^3/uL (0.0-0.2); Absolute Eosinophil Count 0.21 10^3/uL (0.0-0.7); Absolute Monocyte Count 0.63 10^3/uL (0.1-0.8); Absolute Neutrophil Count 1.93 10^3/uL (1.2-6.7); Basophils % 1.3; Eosinophils % 4.4; HCT 40.1 % (36.0-46.0); HGB 13.4 g/dL (11.2-15.7); Lymphocytes % 40.2; MCH 29.7 pg (27.0-33.0); MCHC 33.4 % (32.0-36.0); MCV 89 fL (80-95); MPV 9.1 fL (8.0-11.0); Monocytes % 13.3; Neutrophils % 40.8; Platelet Count 335 10^3/uL (130-400); RBC 4.51 10^6/uL (3.93-5.22); RDW 12.2 % (11.7-14.6); RDW-SD 39.8 fL; WBC 4.73 10^3/uL (4.4-10.8)
[2023-04-27 11:43] LABS: ALT 31 U/L (14-59); AST 19 U/L (15-37); Albumin 4.1 g/dL (3.4-5.0); Alkaline Phosphatase 50 U/L (46-116); Anion Gap 3.1 mmol/L (3-11); BUN 15 mg/dL (7-18); Bilirubin, Total 0.6 mg/dL (0.2-1.0); CO2 29.9 mmol/L (21.0-32.0); CREATININE 0.9 mg/dL (0.55-1.02); Calcium 9.7 mg/dL (8.5-10.1); Chloride 104 mmol/L (98-107); Estimated GFR 84.44 (mL/min/1.73m2); Glucose 131 mg/dL (74-106); Potassium 4.1 mmol/L (3.5-5.1); Sodium 137 mmol/L (136-145); Total Protein 7.9 g/dL (6.4-8.2)
[2023-04-27 12:57] LABS: C-Reactive Protein < 0.05 mg/dL (0.0-0.3)
== END 2023-04-27 13:32 | disposition home or self-care (01) ==
LOC: LBO 13:32
PROVIDERS: PCP Nurse Practitioner Family; Visit Provider Internal Medicine
DX: M00.811 Arthritis due to other bacteria, right shoulder (principal)
CPT/HCPCS: 36415; 80053; 85025; 86140

== ENCOUNTER 2023-05-17 18:16 | Outpatient (CLI) | payer OTHER, SELFPAY ==
[2023-05-17 16:04] LABS: Abs Immature Grans 0.01 10^3/uL (0.0-0.06); Absolute Basophil Count 0.05 10^3/uL (0.0-0.2); Absolute Eosinophil Count 0.17 10^3/uL (0.0-0.7); Absolute Lymphocyte Count 1.89 10^3/uL (1.2-3.4); Absolute Neutrophil Count 3.69 10^3/uL (1.2-6.7); Basophils % 0.8; Eosinophils % 2.6; HCT 40.3 % (36.0-46.0); HGB 13.4 g/dL (11.2-15.7); Immature Grans % 0.2; MCH 29.1 pg (27.0-33.0); MCHC 33.3 % (32.0-36.0); MCV 88 fL (80-95); Monocytes % 10.8; Neutrophils % 56.6; Platelet Count 381 10^3/uL (130-400); RDW 12.1 % (11.7-14.6); WBC 6.51 10^3/uL (4.4-10.8)
[2023-05-17 16:11] LABS: ESR 3 mm/hr (0-20)
[2023-05-17 16:37] LABS: ALT 32 U/L (14-59); AST 14 U/L (15-37); Albumin 4.3 g/dL (3.4-5.0); Alkaline Phosphatase 53 U/L (46-116); Anion Gap 7.5 mmol/L (3-11); BUN 14 mg/dL (7-18); Bilirubin, Total 0.6 mg/dL (0.2-1.0); CO2 30.5 mmol/L (21.0-32.0); CREATININE 0.8 mg/dL (0.55-1.02); Calcium 9.1 mg/dL (8.5-10.1); Chloride 104 mmol/L (98-107); Estimated GFR 97.26 (mL/min/1.73m2); Glucose 99 mg/dL (74-106); Potassium 3.9 mmol/L (3.5-5.1); Sodium 142 mmol/L (136-145)
[2023-05-17 16:38] LABS: C-Reactive Protein < 0.05 mg/dL (0.0-0.3)
== END 2023-05-17 18:17 | disposition home or self-care (01) ==
LOC: LBO 18:16
PROVIDERS: Internal Medicine Infectious Disease; PCP Nurse Practitioner Family; Visit Provider Student in an Organized Health Care Education/Training Program
DX: M00.811 Arthritis due to other bacteria, right shoulder
CPT/HCPCS: 36415; 80053; 85652; 85025; 86140

== ENCOUNTER 2023-06-11 02:54 | Outpatient (CLI) | payer OTHER, SELFPAY ==
[2023-06-11 15:05] LABS: ESR 1 mm/hr (0-20)
[2023-06-11 15:06] LABS: Abs Immature Grans 0.01 10^3/uL (0.0-0.06); Absolute Basophil Count 0.06 10^3/uL (0.0-0.2); Absolute Lymphocyte Count 1.89 10^3/uL (1.2-3.4); Absolute Monocyte Count 0.67 10^3/uL (0.1-0.8); Absolute Neutrophil Count 3.31 10^3/uL (1.2-6.7); Eosinophils % 3.3; HCT 37.8 % (36.0-46.0); HGB 12.6 g/dL (11.2-15.7); Immature Grans % 0.2; Lymphocytes % 30.8; MCH 29.5 pg (27.0-33.0); MCHC 33.3 % (32.0-36.0); MCV 89 fL (80-95); MPV 8.9 fL (8.0-11.0); Monocytes % 10.9; Neutrophils % 53.8; Platelet Count 399 10^3/uL (130-400); RBC 4.27 10^6/uL (3.93-5.22); RDW 12.2 % (11.7-14.6); RDW-SD 39.2 fL; WBC 6.14 10^3/uL (4.4-10.8)
[2023-06-11 16:15] LABS: TSH 0.42 uIU/mL (0.36-3.74); Vitamin B12 682 pg/mL (193-986)
== END 2023-06-11 02:55 | disposition home or self-care (01) ==
LOC: LBO 02:54
PROVIDERS: PCP Nurse Practitioner Family; Visit Provider Psychiatry & Neurology Neurology
DX: R53.83 Other fatigue (principal)
CPT/HCPCS: 36415; 85652; 82607; 84443; 85025

== ENCOUNTER 2024-05-25 01:27 | Outpatient (CLI) | payer OTHER, SELFPAY ==
--- NOTE | 2024-05-25 08:15 | DI.US_ITS ---
Exam(s) US BREAST LT COMPLETE MG MAMMO DIAGNOSTIC BI EXAM: MAMMO DIAGNOSTIC BI and U/S breast LT complete CLINICAL HISTORY: lt breast lump, n63.20. TECHNIQUE: Craniocaudal and mediolateral oblique Full Field Digital Mammography views with Computer Aided Diagnosis followed by Tomosynthesis and left breast ultrasound. A complete left breast ultraso und was performed. All 4 quadrants were evaluated sonographically. The left axilla and retroareolar regions were also evaluated. COMPARISON: This is a baseline examination. FINDINGS: Mammography/Tomosynthesis: Masses/Architectural Distortion: There is a well-circumscribed nodule in the lower outer quadrant of the left breast measuring 1.5 cm. No associated microcalcifications are seen. There are no areas of architectural distortion. There is a question of a ovoid density in the axillary tail region of the left breast which does not persist on the additional views. Microcalcifictions: No suspicious pleomorphic-type are seen. Skin Thickening/Nipple Retraction: None. Complete left breast US: Echotexture: Normal appearance of the glandular tissue. Shadowing: No suspicious foci. Cyst: There are 2 small cysts seen in the upper outer quadrant of the left breast. Solid lesions: There is a radially oriented solid hypoechoic nodule at the 4 o'clock position of the left breast 6 cm from the nipple. This corresponds to the mammographic and palpable abnormality. No posterior acoustic enhancement or shadowing is seen. It is findings are suspicious for a benign les ion such as a fibroadenoma. It measures 1.2 x 0.6 x 1.6 cm. Ductal dilation: None. IMPRESSION: 1. 1.2 x 0.6 x 1.6 cm radially oriented solid hypoechoic nodule at the 4 o'clock position of the left breast 6 cm from the nipple. This corresponds to the mammographic and palpable abnormality. Findin gs are most suspicious for a fibroadenoma. 2. A six-month follow-up left mammogram and left breast ultrasound are requested for re-evaluation. 3. The findings were discussed with the patient on the date of the examination. BI-RADS Category 3 - 6 month - Probably Benign Finding: Recommend follow-up imaging in 6 months Breast Density - Category C - Heterogeneously dense Breast density Category C or D implies that the patient has dense breast tissue. Dense breast tissue can make it harder to find cancer on a mammogram. Dense breast tissue is also associated with an incr eased risk of breast cancer. This information about the result of the mammogram report was provided to the patient to raise their awareness. Use this report when you speak with the patient about their risks for breast cancer, which includes their family history. At that time, you may recommend additional screening tests (Ultrasoun d or MRI) as these tests may add significant information. A negative radiographic report should not delay biopsy if a dominant or clinically suspicious mass is present. Up to ten percent of cancers are not identified on mammography. A negative report may reinforce clinical impression. Adenosis and dense breasts may obscure an underlying neoplasm. False positive reports average 6 to 10%. Patient will receive a letter notifying them of these results.
== END 2024-05-25 01:47 ==
LOC: DI 01:27
PROVIDERS: PCP Nurse Practitioner Family; Visit Provider Obstetrics & Gynecology
DX: N63.22 Unspecified lump in the left breast, upper inner quadrant (principal); Z12.31 Encounter for screening mammogram for malignant neoplasm of breast
CPT/HCPCS: 76642; 77062; 77066; G0279

== ENCOUNTER 2024-10-25 09:15 | Outpatient (CLI) | payer OTHER, SELFPAY ==
--- NOTE | 2024-10-25 08:45 | DI.RAD_ITS ---
Exam(s) XR HAND LT LIMITED EXAM: XR HAND LT LIMITED CLINICAL HISTORY: BILATERAL HAND PAIN. TECHNIQUE: 2D digital imaging was performed of the left hand. Two views were obtained. PA and late ral views were obtained. COMPARISON: No exams were available for comparison FINDINGS: BONES: No acute fracture is present. No bony destructive lesion is seen. JOINTS: No dislocation present. The joint spaces are well maintained. No joint space narrowing, arminda articular osteopenia or soft tissue calcification is seen. No bony productive changes are present. SOFT TISSUE: Normal. IMPRESSION: Unremarkable radiographs of the left hand. DATA REPOSITORY: RADIATION DOSE DELIVERED:
--- NOTE | 2024-10-25 08:45 | DI.RAD_ITS ---
Exam(s) XR HAND RT LIMITED EXAM: XR HAND RT LIMITED CLINICAL HISTORY: BILATERAL HAND PAIN. TECHNIQUE: 2D digital imaging was performed of the right hand. Two images were obtained. PA and lat eral views were obtained. COMPARISON: No exams were available for comparison FINDINGS: BONES: No acute fracture is present. No bony destructive lesion is seen. There is a tiny well cortica russell osseous density at the anterior aspect of the base of the middle phalanx of the middle finger whi ch is old. JOINTS: No dislocation present. The joint spaces are well maintained. No joint space narrowing is pr esent. No periarticular osteopenia, calcifications or erosions are seen. No bony productive changes are seen. SOFT TISSUE: Normal. IMPRESSION: 1. No acute abnormality. 2. No significant arthritic changes. DATA REPOSITORY: RADIATION DOSE DELIVERED:
== END 2024-10-25 09:16 | disposition home or self-care (01) ==
LOC: DIORS 09:15
PROVIDERS: PCP Nurse Practitioner Family; Visit Provider Student in an Organized Health Care Education/Training Program
DX: M79.641 Pain in right hand (principal); M79.642 Pain in left hand
CPT/HCPCS: 73120

== ENCOUNTER 2024-12-04 01:22 | Outpatient (CLI) | payer OTHER, SELFPAY ==
--- NOTE | 2024-12-04 08:30 | DI.US_ITS ---
Exam(s) MG MAMMO DIAGNOSTIC UNI US BREAST LT LIMITED EXAM: MG MAMMO DIAGNOSTIC UNI CLINICAL HISTORY: 6 MO F/U,LT BREAST LUMP, N63.20. COMPARISON: MG MG MAMMO DIAGNOSTIC BI from 05/25/2024 US US BREAST LT COMPLETE from 05/25/2024 US US BREAST LT LIMITED from 12/04/2024 TECHNIQUE: Craniocaudal and mediolateral oblique Full Field Digital Mammography views of the left breast with Computer Aided Diagnosis followed by Tomosynthesis and left breast ultrasound. FINDINGS: Mammography/Tomosynthesis: Masses: Stable circumscribed nodule in the lower outer quadrant Architectural Distortion: None seen. Microcalcifications: No suspicious pleomorphic-type are seen. Skin Thickening/Nipple Retraction: None. Left breast US: Echotexture: Normal appearance of the glandular tissue. Shadowing: No suspicious foci. Cyst: 6 millimeters cyst 1 o'clock position 8 cm from the nipple. 4 millimeter cyst subareolar region. Solid lesions: Stable appearance circumscribed solid hypoechoic nodule in the 4 o'clock position, 6 cm from the nipple. Measured at 12 x 7 x 16 millimeters. Ductal dilation: None. IMPRESSION: 1. No evidence of malignancy is noted. Stable hypoechoic nodule consistent with a fibroadenoma 2. Unless there is more urgent need, follow-up screening mammography is recommended, as per [employer] guidelines. BI-RADS Category 3 - Annual - Resume Annual Screening Breast Density - Category C - The breast are heterogeneously dense, which may obscure small masses. Breast density Category C or D implies that the patient has dense breast tissue. Dense breast tissue can make it harder to find cancer on a mammogram. Dense breast tissue is also associated with an increased risk of breast cancer. This information about the result of the mammogram report was provided to the patient to raise their awareness. Use this report when you speak with the patient about their risks for breast cancer, which includes their family history. At that time, you may recommend additional screening tests (Ultrasound or MRI) as these tests may add significant information. A negative radiographic report should not delay biopsy if a dominant or clinically suspicious mass is present. Up to ten percent of cancers are not identified on mammography. A negative report may reinforce clinical impression. Adenosis and dense breasts may obscure an underlying neoplasm. False positive reports average 6 to 10%. Patient will receive a letter notifying them of these results.
== END 2024-12-04 01:42 ==
LOC: DI 01:22
PROVIDERS: PCP Nurse Practitioner Family; Visit Provider Obstetrics & Gynecology
DX: N63.23 Unspecified lump in the left breast, lower outer quadrant (principal); Z12.31 Encounter for screening mammogram for malignant neoplasm of breast
CPT/HCPCS: 76642; 77061; 77065; G0279

== ENCOUNTER → 2025-05-28 00:53 | Outpatient (CLI) | payer OTHER, SELFPAY ==
--- NOTE | 2025-05-28 07:00 | DI.MAMMO_ITS ---
Exam(s) MAMMO SCREENING EXAM: MAMMO SCREENING CLINICAL HISTORY: screening,z12.39 TECHNIQUE: Bilateral full field digital CC and MLO mammographic images were obtained with 3D tomosynthesis and utilizing computer aided detection (CAD). COMPARISON: Comparison is made with prior examinations. FINDINGS: Masses/Architectural Distortion: No suspicious masses or areas of architectural distortion are present. The nodule in the lower outer quadrant of the left breast is stable. Microcalcifications: No suspicious pleomorphic-type are seen. Skin Thickening/Nipple Retraction: None. IMPRESSION: 1. No significant interval change with no specific features of malignancy noted. 2. Unless there is more urgent need, screening mammography is recommended, as per [place] [employer] guidelines. BI-RADS Category 2 - Benign Findings Breast Density - Category C - The breast are heterogeneously dense, which may obscure small masses. Breast density Category C or D implies that the patient has dense breast tissue. Dense breast tissue can make it harder to find cancer on a mammogram. Dense breast tissue is also associated with an increased risk of breast cancer. This information about the result of the mammogram report was provided to the patient to raise their awareness. Use this report when you speak with the patient about their risks for breast cancer, which includes their family history. At that time, you may recommend additional screening tests (Ultrasound or MRI) as these tests may add significant information. A negative radiographic report should not delay biopsy if a dominant or clinically suspicious mass is present. Up to ten percent of cancers are not identified on mammography. A negative report may reinforce clinical impression. Adenosis and dense breasts may obscure an underlying neoplasm. False positive reports average 6 to 10%. Patient will receive a letter notifying them of these results.
== END ==
LOC: DI 00:53
PROVIDERS: PCP Nurse Practitioner Family; Visit Provider Obstetrics & Gynecology
DX: Z12.31 Encounter for screening mammogram for malignant neoplasm of breast (principal)
CPT/HCPCS: 77063; 77067